=== PATIENT | female | born 1960 | race African-American/Black ===

== ENCOUNTER → 2017-04-08 | Outpatient (CLI) | payer MEDICARE ==
--- NOTE | 2017-04-08 16:15 | RADIOLOGY REPORT (SQ) ---
EXAM DESCRIPTION: VENOUS BILATERAL LOWER COMPLETED DATE/TIME: 04/08/2017 3:12 pm REASON FOR STUDY: EDEMA R22.41 LOCALIZED SWELLING, MASS AND LUMP, RIGHT LOWER LIMB COMPARISON: 07/26/2010 lower extremity venous Doppler TECHNIQUE: Dynamic and static adiar scale and color images acquired of both lower extremity venous sy stems. Selected spectral images acquired with additional compression and augmentation maneuvers. Imag es stored on PACS. LIMITATIONS: Morbid obesity. The distal right and left superficial femoral veins at the distal righ t and left thigh are difficult to visualize FINDINGS: RIGHT LEG COMMON FEMORAL AND FEMORAL: Normal phasicity, compression and augmentation. No visualized echogenic m aterial on adair scale. No defects on color images. POPLITEAL: Normal compression and augmentation. No visualized echogenic material on adair scale. No de fects on color images. CALF VESSELS: Normal compression and augmentation. No visualized echogenic material on adair scale. No defects on color image. GSV AND SSV: Normal compression. No visualized echogenic material on adair scale. No defects on color images. ANY DEEP VENOUS INSUFFICIENCY: Not evaluated. ANY EVIDENCE OF POPLITEAL CYST: No. OTHER: No other significant finding. LEFT LEG COMMON FEMORAL AND FEMORAL: Normal phasicity, compression and augmentation. No visualized echogenic m aterial on adair scale. No defects on color images. POPLITEAL: Normal compression and augmentation. No visualized echogenic material on adair scale. No de fects on color images. CALF VESSELS: Normal compression and augmentation. No visualized echogenic material on adair scale. No defects on color images. GSV AND SSV: Normal compression. No visualized echogenic material on adair scale. No defects on color images. ANY DEEP VENOUS INSUFFICIENCY: Not evaluated. ANY EVIDENCE POPLITEAL CYST: No. OTHER: No other significant finding. IMPRESSION: NO EVIDENCE DVT OR SVT IN EITHER LEG. TECHNICAL DOCUMENTATION: JOB ID: [id number] [employer]- All Rights Reserved
== END ==
LOC: SP 14:11
PROVIDERS: ATTEND Internal Medicine Geriatric Medicine
DX: R22.41 Localized swelling, mass and lump, right lower limb (principal)
CPT/HCPCS: 93970

== ENCOUNTER → 2017-10-13 | Outpatient (CLI) | payer MEDICARE ==
--- NOTE | 2017-10-13 16:21 | WOMENS IMAGING REPORT ---
EXAM DESCRIPTION: 3D SCREENING MAMMO BILAT COMPLETED DATE/TIME: 10/13/2017 2:13 pm REASON FOR STUDY: SCREENING MAMMO Z12.31 ENCNTR SCREEN MAMMOGRAM FOR MALIGNANT NEOPLASM OF FRANCIS COMPARISON: Multiple since 2009 TECHNIQUE: Standard craniocaudal and mediolateral oblique views of each breast recorded using digita l acquisition and breast tomosynthesis. LIMITATIONS: None. FINDINGS: No masses, calcifications or architectural distortion. No areas of suspicion. Read with the assistance of CAD. .[facility] - R2 Cenova Version 1.3 .[facility] Imaging - R2 Cenova Version 1.3 .[facility] Imaging - R2 Cenova Version 2.4 .[facility] - R2 Cenova Version 2.4 .[facility] - R2 [employer] Version 9.2 IMPRESSION: NORMAL MAMMOGRAM. BIRADS 1. BREAST DENSITY: a. The breasts are almost entirely fatty. BIRAD: 1 NEGATIVE RECOMMENDATION: ROUTINE SCREENING Please continue yearly bilateral screening tomosynthesis in October 2017 COMMENT: The patient has been notified of the results by letter per SA requirements. Additional no tification policies are in place for contacting patient with suspicious or incomplete findings. Quality ID #225: The [employer] recommends an annual screening mammogram for women aged 40 years or over. This facility utilizes a reminder system to ensure that all patients receive reminder letters, and/or direct phone calls for appointments. This includes reminders for routine scr eening mammograms, diagnostic mammograms, or other Breast Imaging Interventions when appropriate. Th is patient will be placed in the appropriate reminder system. The [employer] (ACR) has developed recommendations for screening MRI of the breast s in certain patient populations, to be used in conjunction with mammography. Breast MRI surveillanc e may be appropriate for women with more than 20% lifetime risk of developing breast cancer as deter mined by genetic testing, significant family history of the disease, or history of mantle radiation f or Hodgkins Disease. ACR Practice Guidelines 2008. DBT Technology DBT is a type of tomographic mammography. With conventional mammography, overlapping breast tissue ma y make lesions difficult to detect, even with good compression. DBT uses an x-ray tube that rotates a round the breast, taking images at different angles. These images are then combined to create thin sl ices of the breast that the radiologist can view as a 3D reconstruction. The EasyPost unit can perform full-field digital mammograms (2D imaging); or DBT (3D imaging); or both, in a combination mode that quickly performs both the mammogram and the tomosynthesis scan while the breast is still compressed. PQRS 6045F: Fluoroscopic imaging is not utilized for breast tomosynthesis. TECHNICAL DOCUMENTATION: FINDING NUMBER: (1) ASSESSMENT: (1) JOB ID: [id number] [employer]- All Rights Reserved Reading location - IP/workstation name: [email or web address]-RR2
== END ==
LOC: WI 13:14
PROVIDERS: ATTEND Internal Medicine Geriatric Medicine
DX: Z12.31 Encounter for screening mammogram for malignant neoplasm of breast (principal)
CPT/HCPCS: 77063; 77067

== ENCOUNTER → 2018-11-03 | Outpatient (CLI) | payer MEDICARE ==
--- NOTE | 2018-11-03 14:23 | WOMENS IMAGING REPORT ---
EXAM DESCRIPTION: 3D SCREENING MAMMO BILAT COMPLETED DATE/TIME: 11/03/2018 8:41 am REASON FOR STUDY: Z12.31 ENCOUNTER FOR SCREENING MAMMOGRAM FOR MALIGNANT NEOPLASM OF BREAST Z12.31 ENCNTR SCREEN MAMMOGRAM FOR MALIGNANT NEOPLASM OF FRANCIS COMPARISON: Multiple since 2009 EXAM PARAMETERS: Views: Standard craniocaudal and mediolateral oblique views of each breast recorded using digital acquisition and breast tomosynthesis. Read with the assistance of CAD. .[facility] - [employer] Monitor Version 9.2 LIMITATIONS: None. FINDINGS: No suspicious masses, suspicious calcifications or architectural distortion. No areas of c oncern. IMPRESSION: NEGATIVE MAMMOGRAM. BIRADS 1. BREAST DENSITY: a. The breasts are almost entirely fatty. BIRAD: ASSESSMENT: 1 NEGATIVE RECOMMENDATION: ROUTINE SCREENING COMMENT: The patient has been notified of the results by letter per MQSA requirements. Additional no tification policies are in place for contacting patient with suspicious or incomplete findings. Quality ID #[id number]: The [employer] recommends an annual screening mammogram for women aged 40 years or over. This facility utilizes a reminder system to ensure that all patients receive reminder letters, and/or direct phone calls for appointments. This includes reminders for routine scr eening mammograms, diagnostic mammograms, or other Breast Imaging Interventions when appropriate. Th is patient will be placed in the appropriate reminder system. TECHNICAL DOCUMENTATION: FINDING NUMBER: (1) ASSESSMENT: (1) JOB ID: [id number] [employer]- All Rights Reserved Reading location - IP/workstation name: [email or web address]
== END ==
LOC: WI 08:18
PROVIDERS: ATTEND Internal Medicine Geriatric Medicine
DX: Z12.31 Encounter for screening mammogram for malignant neoplasm of breast (principal)
CPT/HCPCS: 77063; 77067

== ENCOUNTER 2018-11-30 08:30 | Inpatient (IN) | payer MEDICARE ==
[2018-11-30] MEDS ORDERED: NORMAL SALINE 1000 ML 1,000 ML IV ONE (09:12)
--- NOTE | 2018-11-30 09:21 | ER Document Report ---
ED General - General Chief Complaint: General Weakness Stated Complaint: WEAKNESS Time Seen by Provider: 11/30/18 09:11 Primary Care Provider: ALEX CERRATO MD [Primary Care Provider] - Follow up as needed TRAVEL OUTSIDE OF THE [place] IN LAST 30 DAYS: No - HPI Notes: Patient is a 58-year-old female that presents to the emergency department for chief complaint of generalized weakness and cough. Patient states she has felt increasingly fatigued over the last 3 to 4 days. Sh ines reports yesterday she started feeling short of breath and coughing. She denies productive sputum. She states she feels like she has been running a temperature and her T-max at home was 99.7. Patient did take Tylenol last night for fever but has not had any antipyretics this morning. She reports some nausea with a few episodes of emesis a few days ago but that has resolved. She denied any associated abdominal pain, chest pain or diarrhea. Past Medical History: Reviewed in chart Past Surgical History: Total knee arthroplasty Social History: Denies tobacco, alcohol and drug use Family History: Reviewed and noncontributory for presenting illness Allergies: Reviewed, see documented allergy list. REVIEW OF SYSTEMS: CONSTITUTIONAL : fever chills diaphoresis No recent illness EENT: No vision changes congestion No sore throat CARDIOVASCULAR: No chest pain No palpitations RESPIRATORY: shortness of breath cough difficulty breathing GASTROINTESTINAL: No abdominal pain nausea vomiting No diarrhea GENITOURINARY: No dysuria No hematuria No difficulty urinating MUSCULOSKELETAL: No back pain No leg pain No arm pain SKIN: No rashes No lesions LYMPHATIC: No swollen, enlarged glands. NEUROLOGICAL: No lightheadedness No headache No weakness No paresthesias PSYCHIATRIC: No anxiety No depression PHYSICAL EXAMINATION: Vital signs reviewed, nursing noted reviewed. GENERAL: ill-appearing, obese and in mild acute distress. HEAD: Atraumatic, normocephalic. EYES: Eyes appear normal, extraocular movements intact, sclera anicteric, conjunctiva are normal. ENT: nares patent, oropharynx clear without exudates. Moist mucous membranes. NECK: Normal range of motion, supple without lymphadenopathy LUNGS: Tachypneic without retractions. Mild accessory muscle use. Lung sounds diminished to auscultation bilaterally without wheezing or rhonchi. HEART: Tachycardic rate and regular rhythm without murmurs ABDOMEN: Soft, nontender, normoactive bowel sounds. No rebound, guarding, or rigidity. No masses appreciated. EXTREMITIES: Nontender, good range of motion, no pitting or edema. NEUROLOGICAL: No focal neurological deficits. Moves all extremities spontaneously Motor and sensory grossly intact on exam. PSYCH: Normal mood, normal affect. SKIN: Warm, diaphoretic, normal turgor, no rashes or lesions noted on exposed s kin - Related Data Allergies/Adverse Reactions: morphine [Morphine] Allergy (Intermediate, Verified 11/30/18 08:39) hives, itching Past Medical History - Social History Smoking Status: Never Smoker Family History: Reviewed & Not Pertinent Patient has suicidal ideation: No Patient has homicidal ideation: No - Past Medical History Cardiac Medical History: Denies: Hx Coronary Artery Disease, Hx Heart Attack, Hx Hypertension Pulmonary Medical History: Denies: Hx Asthma, Hx Bronchitis, Hx COPD, Hx Pneumonia Neurological Medical History: Denies: Hx Cerebrovascular Accident, Hx Seizures Musculoskeletal Medical History: Reports Hx Arthritis Past Surgical History: Reports: Hx Section - x3, Hx Hysterectomy - Immunizations Hx Diphtheria, Pertussis, Tetanus Vaccination: Yes Physical Exam - Vital signs Vitals: Temp Pulse Resp BP Pulse Ox 99.3 F 119 H 20 125/83 94 11/30/18 08:38 11/30/18 08:38 11/30/18 08:38 11/30/18 08:38 11/30/18 08:38 Course - Re-evaluation Re-evalutation: 11/30/18 10:20 Vitals reviewed. Nursing notes reviewed. Patient is diaphoretic and hypoxic in the 60s when she presents in the room. Patient was placed on nonrebreather mask which brought her O2 level to 95%. She does have tachypnea without retractions. Patient's chest x-ray shows significant right-sided pneumonia and to a lesser extent lower left lobe pneumonia. Patient started on Rocephin and azithromycin. She is meeting septic shock criteria with elevated lactate, renal failure and elevated troponin. Patient's troponin is 0.686. She has not had any associated chest pain and has no ischemic changes on EKG. I suspect this is type II NSTEMI secondary to severe hypoxia. Patient's ABG shows hypoxia despite being on 10 L of nonrebreather oxygen, she will be placed on BiPAP for continued respiratory support. She is awake and currently protecting her airway, not requiring intubation currently. Patient will be admitted to the hospital for further care. Case discussed with admitting provider Dr. Cerrato Laboratory 11/30/18 11/30/18 11/30/18 09:11 09:11 09:11 WBC 15.8 H RBC 3.96 Hgb 11.7 L Hct 35.4 L MCV 89 MCH 29.6 MCHC 33.1 RDW 14.6 H Plt Count 216 Lymph % (Auto) 11.1 L York % (Auto) 5.5 Eos % (Auto) 0.0 Baso % (Auto) 0.1 Absolute Neuts (auto) 13.2 H Absolute Lymphs (auto) 1.8 Absolute Monos (auto) 0.9 Absolute Eos (auto) 0.0 Absolute Basos (auto) 0.0 Seg Neutrophils % 83.3 H Carbonic Acid HCO3/H2CO3 Ratio ABG pH ABG pCO2 ABG pO2 ABG HCO3 ABG Total CO2 ABG O2 Saturation ABG Base Excess FiO2 Sodium 139.5 Potassium 4.3 Chloride 103 Carbon Dioxide 27 Anion Gap 10 BUN 24 H Creatinine 1.43 H Est GFR ( Amer) 46 L Est GFR (MDRD) Non-Af 38 L Glucose 148 H Lactic Acid Calcium 8.5 Total Bilirubin 2.3 H Direct Bilirubin 1.2 H Neonat Total Bilirubin Not Reportable Neonat Direct Bilirubin Not Reportable Neonat Indirect Bili Not Reportable AST 583 H ALT 402 Alkaline Phosphatase 89 Troponin I 0.686 Total Protein 6.5 Albumin 3.3 L 11/30/18 11/30/18 09:11 09:31 WBC RBC Hgb Hct MCV MCH MCHC RDW Plt Count Lymph % (Auto) York % (Auto) Eos % (Auto) Baso % (Auto) Absolute Neuts (auto) Absolute Lymphs (auto) Absolute Monos (auto) Absolute Eos (auto) Absolute Basos (auto) Seg Neutrophils % Carbonic Acid 1.18 HCO3/H2CO3 Ratio 20:1 ABG pH 7.41 ABG pCO2 39.2 ABG pO2 79.4 L ABG HCO3 24.5 H ABG Total CO2 25.7 H ABG O2 Saturation 95.9 ABG Base Excess 0 FiO2 10L Sodium Potassium Chloride Carbon Dioxide Anion Gap BUN Creatinine Est GFR ( Amer) Est GFR (MDRD) Non-Af Glucose Lactic Acid 3.2 H Calcium Total Bilirubin Direct Bilirubin Neonat Total Bilirubin Neonat Direct Bilirubin Neonat Indirect Bili AST ALT Alkaline Phosphatase Troponin I Total Protein Albumin Chest X-Ray 11/30/18 09:11 IMPRESSION: EXTENSIVE AIRSPACE DISEASE IN THE RIGHT LUNG, LIKELY INFILTRATE SECONDARY TO PNEUMONIA. PROBABLE INFILTRATE IN THE LEFT LUNG BASE WELL. - Vital Signs Vital signs: Temp Pulse Resp BP Pulse Ox 99.3 F 119 H 27 H 125/81 97 11/30/18 08:38 11/30/18 08:38 11/30/18 10:03 11/30/18 10:03 11/30/18 10:03 - Laboratory Result Diagrams: 11/30/18 09:11 11/30/18 09:11 Laboratory results interpreted by me: 11/30/18 11/30/18 11/30/18 09:11 09:11 09:11 WBC 15.8 H Hgb 11.7 L Hct 35.4 L RDW 14.6 H Lymph % (Auto) 11.1 L Absolute Neuts (auto) 13.2 H Seg Neutrophils % 83.3 H ABG pO2 ABG HCO3 ABG Total CO2 BUN 24 H Creatinine 1.43 H Est GFR ( Amer) 46 L Est GFR (MDRD) Non-Af 38 L Glucose 148 H Lactic Acid 3.2 H Total Bilirubin 2.3 H Direct Bilirubin 1.2 H AST 583 H Albumin 3.3 L 11/30/18 09:31 WBC Hgb Hct RDW Lymph % (Auto) Absolute Neuts (auto) Seg Neutrophils % ABG pO2 79.4 L ABG HCO3 24.5 H ABG Total CO2 25.7 H BUN Creatinine Est GFR ( Amer) Est GFR (MDRD) Non-Af Glucose Lactic Acid Total Bilirubin Direct Bilirubin AST Albumin - EKG Interpretation by Me Additional EKG results interpreted by me: 11/30/18 10:23 Interpreted by myself [id number]: Sinus tachycardia, rate 116, normal axis, no ectopy, no STEMI Critical Care Note - Critical Care Note Total time excluding time spent on procedures (mins): 40 Comments: Critical care time 40 exclusive from separate billable procedures for a patient requiring complex medical decision making, and high potential for clinical deterioration. Time spent obtaining history from patient or surrogate, discussions with consultants, development of treatment plan with patient or surrogate, evaluation of patient's response to treatment, examination of patient, ordering and performing treatments and interventions, ordering and review of laboratory studies, re-evaluation of patient's condition, ordering and review of radiographic studies and review of old charts Discharge - Discharge Clinical Impression: Septic shock, Elevated troponin, Elevated lactic acid level Community acquired pneumonia Qualifiers: Laterality: right Lung location: upper lobe of lung Qualified Code(s): J18.1 - Lobar pneumonia, unspecified organism Respiratory failure with hypoxia Qualifiers: Chronicity: acute Qualified Code(s): J96.01 - Acute respiratory failure with hypoxia Acute renal failure Qualifiers: Acute renal failure type: unspecified Qualified Code(s): N17.9 - Acute kidney failure, unspecified Condition: Good Disposition: ADMITTED INPATIENT Admitting Provider: Felice Unit Admitted: [facility] Referrals: ALEX CERRATO MD [Primary Care Provider] - Follow up as needed
[2018-11-30] MEDS ORDERED: ACETAMINOPHEN 325 MG TABLET PO ONE (09:34)
[2018-11-30 09:40] LABS: ABSOLUTE LYMPHOCYTES (AUTO) 1.8 10^3/uL (0.5-4.7); ABSOLUTE MONOCYTES (AUTO) 0.9 10^3/uL (0.1-1.4); ABSOLUTE NEUT (AUTO) 13.2 10^3/uL (1.7-8.2); BASOPHILS % (AUTO) 0.1 % (0-2); HEMATOCRIT 35.4 % (36.0-47.0); HEMOGLOBIN 11.7 g/dL (12.0-15.5); LYMPHOCYTES % (AUTO) 11.1 % (13-45); MEAN CORPUSCULAR HEMOGLOBIN 29.6 pg (27.0-33.4); MEAN CORPUSCULAR HGB CONC 33.1 g/dL (32.0-36.0); MEAN CORPUSCULAR VOLUME 89 fl (80-97); MONOCYTES % (AUTO) 5.5 % (3-13); PLATELET COUNT 216 10^3/uL (150-450); RED BLOOD COUNT 3.96 10^6/uL (3.72-5.28); RED CELL DISTRIBUTION WIDTH 14.6 % (11.5-14.0); SEGMENTED NEUTROPHILS % (AUTO) 83.3 % (42-78); TOTAL CELLS COUNTED % (AUTO) 100 %; WHITE BLOOD COUNT 15.8 10^3/uL (4.0-10.5)
--- NOTE | 2018-11-30 09:45 | RADIOLOGY REPORT (SQ) ---
EXAM DESCRIPTION: CHEST SINGLE VIEW COMPLETED DATE/TIME: 11/30/2018 9:29 am REASON FOR STUDY: weakness COMPARISON: None. EXAM PARAMETERS: NUMBER OF VIEWS: One view. TECHNIQUE: Single frontal radiographic view of the chest acquired. RADIATION DOSE: NA LIMITATIONS: Limited due to the patient's body habitus. FINDINGS: LUNGS AND PLEURA: Extensive airspace disease in the right lung. Probable density in the l eft lung base behind the heart. No large pleural effusion or obvious pneumothorax. MEDIASTINUM AND HILAR STRUCTURES: No masses. Contour normal. HEART AND VASCULAR STRUCTURES: Heart normal in size. Normal vasculature. BONES: No acute findings. HARDWARE: None in the chest. OTHER: No other significant finding. IMPRESSION: EXTENSIVE AIRSPACE DISEASE IN THE RIGHT LUNG, LIKELY INFILTRATE SECONDARY TO PNEUMONIA. PROBABLE INFILTRATE IN THE LEFT LUNG BASE WELL. TECHNICAL DOCUMENTATION: JOB ID: [id number] [employer]- All Rights Reserved Reading location - IP/workstation name: [email or web address]
[2018-11-30 09:57] LABS: ARTERIAL BLOOD BASE EXCESS 0 mmol/L; ARTERIAL BLOOD H2CO3 1.18 mmol/L (1.05-1.35); ARTERIAL BLOOD HCO3 24.5 mmol/L (20-24); ARTERIAL BLOOD O2 SATURATION 95.9 % (94-98); ARTERIAL BLOOD PCO2 39.2 mmHg (35-45); ARTERIAL BLOOD PH 7.41 (7.35-7.45); ARTERIAL BLOOD PO2 79.4 mmHg (80-100); ARTERIAL BLOOD TOTAL CO2 25.7 mmol/L (21-25)
[2018-11-30 09:58] LABS: ARTERIAL BLOOD FIO2 10L
[2018-11-30 10:01] LABS: ALBUMIN 3.3 g/dL (3.5-5.0); ALKALINE PHOSPHATASE 89 U/L (38-126); ANION GAP 10 (5-19); ASPARTATE AMINO TRANSFERASE 583 U/L (14-36); BILIRUBIN,DIRECT 1.2 mg/dL (0.0-0.4); BILIRUBIN,TOTAL 2.3 mg/dL (0.2-1.3); BLOOD UREA NITROGEN 24 mg/dL (7-20); CALCIUM 8.5 mg/dL (8.4-10.2); CARBON DIOXIDE 27 mmol/L (22-30); CHLORIDE 103 mmol/L (98-107); GLUCOSE 148 mg/dL (75-110); POTASSIUM 4.3 mmol/L (3.6-5.0); TOTAL PROTEIN 6.5 g/dL (6.3-8.2)
[2018-11-30] MEDS ORDERED: CEFTRIAXONE INJ 1000 MG VIAL IV ONE (10:01)
[2018-11-30] MEDS ORDERED: AZITHROMYCIN INJ 500 MG VIAL IV ONE (10:01)
[2018-11-30] MEDS ORDERED: ASPIRIN 81 MG TABLET, CHEWABLE PO ONE (10:20)
[2018-11-30 10:39] LABS: A TYPE INFLUENZA AG NEGATIVE (NEGATIVE); B INFLUENZA AG NEGATIVE (NEGATIVE)
[2018-11-30] MEDS: NORMAL SALINE 1000 ML 1,000 ML IV PRN ×2 (13:47→22:21)
[2018-11-30] MEDS ORDERED: ONDANSETRON HCL INJ/PF 4 MG/2 ML SDV IV PRN (14:24)
[2018-11-30] MEDS ORDERED: NORMAL SALINE 1000 ML 1,000 ML IV PRN (14:24)
--- NOTE | 2018-11-30 19:18 | PDOC H&P ---
History of Present Illness Admission Date/PCP: 11/30/18 10:31 ALEX SAQIB Patient complains of: Difficulty with breathing History of Present Illness: LA LUNA is a 58 year old female known to my practice presented to the ED with several days of progressive generalized weakness, excessive sleepiness, and difficulty with breathing. She reported several episodes pf postprandial vomiting and admitted to possible aspiration. She reported associated n onproductive cough, wheezing, low grade fever and worsening shortness of breath that prompted her seeking medical evaluation at the ED. Her initial evaluation was significant for tachycardia, tachypnea and hypoxemia on room air. She denied ay chest pain, palpitation, or abdominal pain. She admitted to low grade fever and self administration of Tylenol night before her presentation to the ED. she denied any recent exposure to sick individual or travel outside her usual domain. Her morbidities are as listed below. Past Medical History Cardiac Medical History: Denies: Coronary Artery Disease, Myocardial Infarction, Hypertension Pulmonary Medical History: Denies: Asthma, Bronchitis, Chronic Obstructive Pulmonary Disease (COPD), Pneumonia Neurological Medical History: Denies: Seizures GI Medical History: Reports: Gastroesophageal Reflux Disease Musculoskeltal Medical History: Reports: Arthritis - involving knee joints and cheronic pain Hematology: Denies: Anemia Past Surgical History Past Surgical History: Reports: Section - x3, Hysterectomy, Orthopedic Surgery - Right knee replacement Social History Smoking Status: Never Smoker Electronic Cigarette use?: No Frequency of Alcohol Use: None Hx Recreational Drug Use: No Drugs: None Hx Prescription Drug Abuse: No - Advance Directive Resuscitation Status: Full Code Family History Family History: Reviewed & Not Pertinent Parental Family History Reviewed: Yes Children Family History Reviewed: Yes Sibling(s) Family History Reviewed.: Yes Medication/Allergy Home Medications: Aspirin [Ecotrin 81 mg EC Tablet] 81 mg PO DAILY 11/30/18 Cetirizine HCl [Zyrtec 10 mg Tablet] 10 mg PO DAILY 11/30/18 Cyclobenzaprine HCl [Flexeril 10 mg Tablet] 10 mg PO BID 11/30/18 Gabapentin [Neurontin] 600 mg PO BID 11/30/18 Meloxicam [Mobic] 15 mg PO DAILY 11/30/18 Omeprazole 40 mg PO DAILY 11/30/18 Ranitidine HCl [Zantac] 300 mg PO QHS 11/30/18 Allergies/Adverse Reactions: morphine [Morphine] Allergy (Intermediate, Verified 11/30/18 08:39) hives, itching Review of Systems Constitutional: PRESENT: anorexia, fatigue, fever(s), weakness Eyes: ABSENT: visual disturbances Ears: ABSENT: hearing changes Nose, Mouth, and Throat: ABSENT: as per HPI, headache(s), mouth pain, sore throat, vertigo, other Cardiovascular: PRESENT: dyspnea on exertion Respiratory: PRESENT: cough, dyspnea Gastrointestinal: PRESENT: vomiting Genitourinary: ABSENT: dysuria, hematuria Musculoskeletal: PRESENT: back pain - long standing issue, deformity - knee joint arthritis Integumentary: ABSENT: rash, wounds Neurological: ABSENT: abnormal gait, abnormal speech, confusion, dizziness, focal weakness, syncope Psychiatric: ABSENT: anxiety, depression, homidical ideation, suicidal ideation Endocrine: ABSENT: cold intolerance, heat intolerance, polydipsia, polyuria Hematologic/Lymphatic: ABSENT: easy bleeding, easy bruising, lymphadenopathy Allergic/Immunologic: ABSENT: seasonal rhinorrhea Physical Exam Vital Signs: Temp Pulse Resp BP Pulse Ox 97.5 F 100 34 H 126/87 H 96 11/30/18 16:00 11/30/18 16:00 11/30/18 16:00 11/30/18 16:00 11/30/18 16:00 Intake & Output 11/29/18 11/30/18 12/01/18 06:59 06:59 06:59 Intake Total 1300 Balance 1300 Weight 370.5 kg General appearance: PRESENT: mild distress - remain on BiPAP support, morbidly obese Head exam: PRESENT: atraumatic, normocephalic Eye exam: PRESENT: conjunctiva pink, EOMI, PERRLA. ABSENT: scleral icterus Ear exam: PRESENT: normal external ear exam Mouth exam: PRESENT: moist Throat exam: ABSENT: post pharyngeal erythema, tonsillar erythema, tonsillar exudate, tonsillogmegaly, other Neck exam: PRESENT: full ROM. ABSENT: carotid bruit, JVD, lymphadenopathy, thyromegaly Respiratory exam: PRESENT: crackles - scatterd bilaterally, decreased breath sounds - right lower lung zone Cardiovascular exam: PRESENT: RRR. ABSENT: diastolic murmur, rubs, systolic murmur Vascular exam: ABSENT: pallor GI/Abdominal exam: PRESENT: normal bowel sounds, soft. ABSENT: distended, guarding, mass, organolmegaly, rebound, tenderness Rectal exam: PRESENT: deferred Extremities exam: ABSENT: pedal edema Musculoskeletal exam: PRESENT: deformity - related to mu;tiple jpoints involvement with arthritis Neurological exam: PRESENT: alert, awake, oriented to person, oriented to place, oriented to time, oriented to situation, CN II-XII grossly intact. ABSENT: motor sensory deficit Psychiatric exam: PRESENT: appropriate affect, normal mood. ABSENT: homicidal ideation, suicidal ideation Skin exam: PRESENT: dry, warm Results Laboratory Results: 11/30/18 09:11 11/30/18 09:11 11/30/18 11/30/18 11/30/18 09:11 09:11 09:11 WBC 15.8 H RBC 3.96 Hgb 11.7 L Hct 35.4 L MCV 89 MCH 29.6 MCHC 33.1 RDW 14.6 H Plt Count 216 Seg Neutrophils % 83.3 H Carbonic Acid HCO3/H2CO3 Ratio ABG pH ABG pCO2 ABG pO2 ABG HCO3 ABG O2 Saturation ABG Base Excess FiO2 Sodium 139.5 Potassium 4.3 Chloride 103 Carbon Dioxide 27 Anion Gap 10 BUN 24 H Creatinine 1.43 H Est GFR ( Amer) 46 L Glucose 148 H Lactic Acid 3.2 H Calcium 8.5 Total Bilirubin 2.3 H AST 583 H Alkaline Phosphatase 89 Total Protein 6.5 Albumin 3.3 L 11/30/18 09:31 WBC RBC Hgb Hct MCV MCH MCHC RDW Plt Count Seg Neutrophils % Carbonic Acid 1.18 HCO3/H2CO3 Ratio 20:1 ABG pH 7.41 ABG pCO2 39.2 ABG pO2 79.4 L ABG HCO3 24.5 H ABG O2 Saturation 95.9 ABG Base Excess 0 FiO2 10L Sodium Potassium Chloride Carbon Dioxide Anion Gap BUN Creatinine Est GFR ( Amer) Glucose Lactic Acid Calcium Total Bilirubin AST Alkaline Phosphatase Total Protein Albumin 11/30/18 09:11 Troponin I 0.686 Impressions: Chest X-Ray 11/30/18 09:11 IMPRESSION: EXTENSIVE AIRSPACE DISEASE IN THE RIGHT LUNG, LIKELY INFILTRATE SECONDARY TO PNEUMONIA. PROBABLE INFILTRATE IN THE LEFT LUNG BASE WELL. Assessment & Plan - Diagnosis (1) Respiratory failure with hypoxia Qualifiers: Chronicity: acute Qualified Code(s): J96.01 - Acute respiratory failure with hypoxia Is this a current diagnosis for this admission?: Yes Plan: See admitting attending physician orders for details about care plan. (2) Community acquired pneumonia Qualifiers: Laterality: right Lung location: upper lobe of lung Qualified Code(s): J18.1 - Lobar pneumonia, unspecified organism Is this a current diagnosis for this admission?: Yes Plan: ee admitting attending physician orders for details about care plan. (3) Elevated troponin Is this a current diagnosis for this admission?: Yes Plan: ee admitting attending physician orders for details about care plan. (4) Elevated lactic acid level Is this a current diagnosis for this admission?: Yes Plan: ee admitting attending physician orders for details about care plan. (5) Acute renal failure Qualifiers: Acute renal failure type: unspecified Qualified Code(s): N17.9 - Acute kidney failure, unspecified Is this a current diagnosis for this admission?: Yes Plan: ee admitting attending physician orders for details about care plan. (6) Osteoarthritis of knee Qualifiers: Osteoarthritis type: primary Laterality: unspecified laterality Qualified Code(s): M17.10 - Unilateral primary osteoarthritis, unspecified knee Is this a current diagnosis for this admission?: Yes Plan: ee admitting attending physician orders for details about care plan. (7) Morbid obesity with BMI of 70 and over, adult Is this a current diagnosis for this admission?: Yes Plan: ee admitting attending physician orders for details about care plan. - Time Time Spent: 50 to 70 Minutes Medications reviewed and adjusted accordingly: Yes Anticipated discharge: Home Within: Other - Inpatient Certification Based on my medical assessment, after consideration of the patient's comorbidities, presenting symptoms, or acuity I expect that the services needed warrant INPATIENT care.: Yes I certify that my determination is in accordance with my understanding of Medicare's requirements for reasonable and necessary INPATIENT services [42 CFR 412.3e].: Yes Medical Necessity: Significant Comorbidiites Make Outpatient Treatment Too [place]is [place], Need Close Monitoring Due to Risk of Patient Decompensation, Need For IV Fluids, Need For Continuous Telemetry Monitoring, Need for Pain Control, Need for IV Antibiotics, Risk of Complication if Not Cared For in Hospital, Risk of Diagnosis Which Will Require Inpatient Eval/Care/Monitoring Post Hospital Care: D/C Care Transitions Nurse Documentation - Plan Summary Plan Summary: admitting attending physician orders for details about care plan.
[2018-11-30 20:42] LABS: CREATINE KINASE MB 1.6 ng/mL (<4.55)
[2018-11-30 20:44] LABS: APPEARANCE,URINE CLOUDY; BILIRUBIN,URINE NEGATIVE (NEGATIVE); COLOR,URINE AMBER; GLUCOSE, URINE NEGATIVE (NEGATIVE); KETONES,URINE TRACE mg/dL (NEGATIVE); LEUKOCYTE ESTERASE,URINE TRACE (NEGATIVE); NITRITE,URINE NEGATIVE (NEGATIVE); PROTEIN,URINE 100 mg/dL (NEGATIVE); URINE SPECIFIC GRAVITY 1.028
[2018-11-30 20:53] LABS: TROPONIN I 0.226 ng/mL
[2018-11-30] MEDS ORDERED: (PENDING PHARMACY ID) (Ranitidine Hcl [Zantac] 300 MG) PO SCH (22:00)
[2018-11-30] MEDS: GABAPENTIN 300 MG CAPSULE PO SCH (22:16)
[2018-11-30] MEDS: FAMOTIDINE 20 MG TABLET PO SCH (22:16)
--- NOTE | 2018-11-30 22:57 | EKG REPORT ---
SEVERITY:- BORDERLINE ECG - SINUS TACHYCARDIA PROBABLE LEFT ATRIAL ABNORMALITY BORDERLINE T WAVE ABNORMALITIES : Confirmed by: Silvestre Cardenas 30-Nov-2018 22:56:24
[2018-12-01 02:07] LABS: CREATINE KINASE MB 0.89 ng/mL (<4.55); TROPONIN I 0.155 ng/mL
[2018-12-01] MEDS: PANTOPRAZOLE SODIUM 40 MG TABLET.DR PO SCH (05:14)
[2018-12-01 08:12] LABS: ABSOLUTE LYMPHOCYTES (AUTO) 1.2 10^3/uL (0.5-4.7); ABSOLUTE MONOCYTES (AUTO) 0.7 10^3/uL (0.1-1.4); ABSOLUTE NEUT (AUTO) 10.1 10^3/uL (1.7-8.2); BASOPHILS % (AUTO) 0.1 % (0-2); EOSINOPHILS % (AUTO) 0.4 % (0-6); HEMATOCRIT 31.1 % (36.0-47.0); HEMOGLOBIN 10.4 g/dL (12.0-15.5); LYMPHOCYTES % (AUTO) 9.8 % (13-45); MEAN CORPUSCULAR HGB CONC 33.3 g/dL (32.0-36.0); MEAN CORPUSCULAR VOLUME 90 fl (80-97); MONOCYTES % (AUTO) 5.5 % (3-13); PLATELET COUNT 193 10^3/uL (150-450); RED BLOOD COUNT 3.46 10^6/uL (3.72-5.28); RED CELL DISTRIBUTION WIDTH 14.1 % (11.5-14.0); SEGMENTED NEUTROPHILS % (AUTO) 84.2 % (42-78); TOTAL CELLS COUNTED % (AUTO) 100 %
[2018-12-01 08:37] LABS: ANION GAP 8 (5-19); BLOOD UREA NITROGEN 18 mg/dL (7-20); CARBON DIOXIDE 27 mmol/L (22-30); CHLORIDE 105 mmol/L (98-107); CREATINE KINASE 171 U/L (30-135); GLUCOSE 88 mg/dL (75-110); POTASSIUM 3.9 mmol/L (3.6-5.0)
[2018-12-01 08:45] LABS: CREATINE KINASE MB 0.58 ng/mL (<4.55); TROPONIN I 0.116 ng/mL
[2018-12-01 09:14] LABS: ARTERIAL BLOOD BASE EXCESS 3.2 mmol/L; ARTERIAL BLOOD H2CO3 1.36 mmol/L (1.05-1.35); ARTERIAL BLOOD HCO3 28.3 mmol/L (20-24); ARTERIAL BLOOD O2 SATURATION 88.5 % (94-98); ARTERIAL BLOOD PCO2 45.3 mmHg (35-45); ARTERIAL BLOOD PH 7.41 (7.35-7.45); ARTERIAL BLOOD PO2 54.4 mmHg (80-100); ARTERIAL BLOOD TOTAL CO2 29.7 mmol/L (21-25)
[2018-12-01 09:16] LABS: ARTERIAL BLOOD FIO2 15L
[2018-12-01] MEDS: CEFTRIAXONE 1 GM/D5W RTU 1 GM/50 ML RTUPB IV SCH (10:21)
[2018-12-01] MEDS: ASPIRIN 81 MG TABLET, ENT COATED PO SCH (10:21)
[2018-12-01] MEDS: ACETAMINOPHEN 325 MG TABLET PO PRN (10:21)
[2018-12-01] MEDS: GABAPENTIN 300 MG CAPSULE PO SCH ×2 (10:21→22:02)
[2018-12-01] MEDS: CETIRIZINE 10 MG TABLET PO SCH (10:21)
[2018-12-01] MEDS: ENOXAPARIN SODIUM INJ 40 MG/0.4 ML DISP.SYRIN SUBCUT SCH (10:22)
--- NOTE | 2018-12-01 11:07 | RADIOLOGY REPORT (SQ) ---
EXAM DESCRIPTION: CHEST SINGLE VIEW COMPLETED DATE/TIME: 12/01/2018 10:25 am REASON FOR STUDY: follow up COMPARISON: 11/30/2018 EXAM PARAMETERS: NUMBER OF VIEWS: One view. TECHNIQUE: Single frontal radiographic view of the chest acquired. RADIATION DOSE: NA LIMITATIONS: None. FINDINGS: LUNGS AND PLEURA: Once again there is dense opacification in the right lung. There is nancy arently some loss of volume on the right. There is faintly defined retrocardiac opacification on the left. The left hemidiaphragm remains well-defined. MEDIASTINUM AND HILAR STRUCTURES: No masses. Contour normal. HEART AND VASCULAR STRUCTURES: Heart size is borderline. There is no [place] pulmonary edema. BONES: No acute findings. HARDWARE: None in the chest. OTHER: No other significant finding. IMPRESSION: There is slightly increased opacification the right lung suggestive of extensive pneumon ia. Cannot exclude a limited pneumonia in the left lower lobe. There is cardiomegaly with no [place] pulmonary edema. TECHNICAL DOCUMENTATION: JOB ID: [id number] [employer]- All Rights Reserved Reading location - IP/workstation name: [email or web address]
[2018-12-01] MEDS: AZITHROMYCIN 500 MG in DEXTROSE 5%-WATER 250 ML IV SCH (12:04)
--- NOTE | 2018-12-01 13:28 | CRITICAL CARE ADMISSION REPORT ---
HPI Date:: 12/01/18 Time:: 11:00 Reason for ICU Reason:: Potential for respiratory decompensation requiring intubation is high HPI: This patient is a 58 yo woman who was admitted last night after struggling at home with respiratory difficulty. This began Wednesday after vomiting. No actual aspiration that she can recall. Some GERD and nausea since that time. Her SOB and work of breathing became severe to the point where she needed to come to the ED and was p,laced on bipap. This AM her CXR looks similar with a severe infiltrate of the RML and RLL. Her RR is about 40, higher than last night. Her FIO2 is 40%. She can speak in full sentences but according to staff certified nurse midwife and her sister she is worse although she herself is probably minimizing this. This could be a CAP but given the temporal relationship to vomiting, the location and appearance of the infiltrate is consistent with aspiration. After 3 days she should be improving. Her respiratory system is at risk for intubation. She is not showing an ARDS pattern to CXR but this is certainly possible. We will continue bipap and antibiotics in the ICU and continue to prvide supportive care. History obtained from:: Patient and sister with nursing - Diagnosis/Plan (1) Aspiration pneumonia due to inhalation of vomitus Is this a current diagnosis for this admission?: Yes Plan: This is consistent with aspiration pneumonitis. It mandates supportive care. Antibiotics are not indicated but, as is frequently the case, there is some doubt of aspiration v CAP therefore antibiotics will be continued as will bipap. (2) Hypoxia Is this a current diagnosis for this admission?: Yes Plan: This is a major reason for ICU monitoring. She may fatigue with an RR of 40 and need intubation is not improved soon. No role for steroids. Past Medical History Cardiac Medical History: Denies: Coronary Artery Disease, Myocardial Infarction, Hypertension Pulmonary Medical History: Denies: Asthma, Bronchitis, Chronic Obstructive Pulmonary Disease (COPD), Pneumonia Neurological Medical History: Denies: Seizures GI Medical History: Reports: Gastroesophageal Reflux Disease Musculoskeltal Medical History: Reports: Arthritis - involving knee joints and cheronic pain Hematology: Denies: Anemia Past Surgical History Past Surgical History: Reports: Section - x3, Hysterectomy, Orthopedic Surgery - Right knee replacement, Other - Lab band surgery Social/Family History - Social History Smoking Status: Never Smoker Frequency of Alcohol Use: None Hx Recreational Drug Use: No Drugs: None Hx Prescription Drug Abuse: No - Medication/Allergies Home Medications: Aspirin [Ecotrin 81 mg EC Tablet] 81 mg PO DAILY 11/30/18 Cetirizine HCl [Zyrtec 10 mg Tablet] 10 mg PO DAILY 11/30/18 Cyclobenzaprine HCl [Flexeril 10 mg Tablet] 10 mg PO BID 11/30/18 Gabapentin [Neurontin] 600 mg PO BID 11/30/18 Meloxicam [Mobic] 15 mg PO DAILY 11/30/18 Omeprazole 40 mg PO DAILY 11/30/18 Ranitidine HCl [Zantac] 300 mg PO QHS 11/30/18 Allergies/Adverse Reactions: morphine [Morphine] Allergy (Intermediate, Verified 11/30/18 08:39) hives, itching Review of Systems ROS unobtainable: Other - Patient does tend to minimize Constitutional: ABSENT: chills, fever(s), headache(s), weight gain, weight loss Eyes: ABSENT: visual disturbances Ears: ABSENT: hearing changes Cardiovascular: ABSENT: chest pain, dyspnea on exertion, edema, orthropnea, palpitations Respiratory: PRESENT: as per HPI, dyspnea Gastrointestinal: ABSENT: abdominal pain, constipation, diarrhea, hematemesis, hematochezia, nausea, vomiting Genitourinary: ABSENT: dysuria, hematuria Integumentary: ABSENT: rash, wounds Neurological: ABSENT: abnormal gait, abnormal speech, confusion, dizziness, focal weakness, syncope Psychiatric: ABSENT: anxiety, depression, homidical ideation, suicidal ideation Endocrine: ABSENT: cold intolerance, heat intolerance, polydipsia, polyuria Hematologic/Lymphatic: ABSENT: easy bleeding, easy bruising Physical Exam Vital Signs: Temp Pulse Resp BP Pulse Ox 101.2 F H 103 H 30 H 132/61 H 100 12/01/18 11:50 12/01/18 11:50 12/01/18 11:50 12/01/18 11:50 12/01/18 11:50 Intake & Output 11/30/18 12/01/18 12/02/18 06:59 06:59 06:59 Intake Total 3300 50 Output Total 475 Balance 2825 50 Weight 172 kg 171 kg Weight/Height Weight 171 kg Height 5 ft 1 in General appearance: PRESENT: mild distress Head exam: PRESENT: atraumatic Eye exam: PRESENT: EOMI, PERRLA Ear exam: PRESENT: normal external ear exam Mouth exam: PRESENT: moist, tongue midline Neck exam: ABSENT: carotid bruit, JVD, lymphadenopathy, thyromegaly Respiratory exam: PRESENT: accessory muscle use, decreased breath sounds, tachypnea Cardiovascular exam: PRESENT: tachycardia GI/Abdominal exam: PRESENT: soft Rectal exam: PRESENT: deferred Gentrourinary exam: PRESENT: indwelling catheter Extremities exam: PRESENT: full ROM Musculoskeletal exam: PRESENT: normal inspection Neurological exam: PRESENT: alert, oriented to person, oriented to place, oriented to time, oriented to situation Laboratory/Radiographs Laboratory Results: 12/01/18 07:49 12/01/18 07:49 11/30/18 12/01/18 12/01/18 20:00 07:49 07:49 WBC 12.0 H RBC 3.46 L Hgb 10.4 L Hct 31.1 L MCV 90 MCH 30.0 MCHC 33.3 RDW 14.1 H Plt Count 193 Seg Neutrophils % 84.2 H Carbonic Acid HCO3/H2CO3 Ratio ABG pH ABG pCO2 ABG pO2 ABG HCO3 ABG O2 Saturation ABG Base Excess FiO2 Sodium 140.1 Potassium 3.9 Chloride 105 Carbon Dioxide 27 Anion Gap 8 BUN 18 Creatinine 0.71 Est GFR ( Amer) > 60 Glucose 88 Calcium 8.0 L Urine Color NESS Urine Appearance CLOUDY Urine pH 5.0 Ur Specific [place] 1.028 Urine Protein 100 H Urine Glucose (UA) NEGATIVE Urine Ketones TRACE H Urine Blood SMALL H Urine Nitrite NEGATIVE Ur Leukocyte Esterase TRACE H Urine WBC (Auto) 33 12/01/18 09:05 WBC RBC Hgb Hct MCV MCH MCHC RDW Plt Count Seg Neutrophils % Carbonic Acid 1.36 H HCO3/H2CO3 Ratio 20:1 ABG pH 7.41 ABG pCO2 45.3 H ABG pO2 54.4 L ABG HCO3 28.3 H ABG O2 Saturation 88.5 L ABG Base Excess 3.2 FiO2 15L Sodium Potassium Chloride Carbon Dioxide Anion Gap BUN Creatinine Est GFR ( Amer) Glucose Calcium Urine Color Urine Appearance Urine pH Ur Specific [place] Urine Protein Urine Glucose (UA) Urine Ketones Urine Blood Urine Nitrite Ur Leukocyte Esterase Urine WBC (Auto) 11/30/18 11/30/18 11/30/18 09:11 19:31 19:31 Creatine Kinase 290 H CK-MB (CK-2) 1.60 Troponin I 0.686 0.226 12/01/18 12/01/18 12/01/18 01:31 01:31 07:49 Creatine Kinase 258 H 171 H CK-MB (CK-2) 0.89 Troponin I 0.155 12/01/18 07:49 Creatine Kinase CK-MB (CK-2) 0.58 Troponin I 0.116 Impressions: Chest X-Ray 12/01/18 00:00 IMPRESSION: There is slightly increased opacification the right lung suggestive of extensive pneumonia. Cannot exclude a limited pneumonia in the left lower lobe. There is cardiomegaly with no [place] pulmonary edema. Critical Time Critical Time (minutes): 40 -: The care of a critically ill patient is dynamic. This note represents a static moment in the admission process. orders and treatments may be given simul ataneously and urgentl, and time is not tax representative of the treatment process. This patient requires Critical Care secondary to life threating organ or limb dysfunction. Without the need for Critical Care services, the patient is at risk for increasid mortality and morbidity.
--- NOTE | 2018-12-01 16:17 | PDOC PROGRESS REPORT ---
Subjective Progress Note for:: 12/01/18 Subjective:: Patient remain on BiPAP support due to continued report of difficulty with breathing. No chest pain. No fever or chills. No abdominal pain, nausea or vomiting. Reason For Visit: BILATERIAL LOBAR PNEUMONIA, ACUTE RESPIRATORY FAIL Physical Exam Vital Signs: Temp Pulse Resp BP Pulse Ox 98 F 107 H 36 H 108/55 L 96 12/01/18 04:00 12/01/18 07:00 12/01/18 04:14 12/01/18 04:00 12/01/18 04:14 Intake & Output 11/30/18 12/01/18 12/02/18 06:59 06:59 06:59 Intake Total 3300 Output Total 475 Balance 2825 Weight 172 kg General appearance: PRESENT: mild distress - on BiPAP support., morbidly obese Head exam: PRESENT: atraumatic, normocephalic Eye exam: PRESENT: conjunctiva pink. ABSENT: scleral icterus Ear exam: PRESENT: normal external ear exam Mouth exam: PRESENT: moist Respiratory exam: PRESENT: crackles, decreased breath sounds Cardiovascular exam: PRESENT: RRR. ABSENT: diastolic murmur, rubs, systolic murmur GI/Abdominal exam: PRESENT: normal bowel sounds, soft. ABSENT: distended, guarding, mass, organolmegaly, rebound, tenderness Extremities exam: ABSENT: pedal edema Neurological exam: PRESENT: alert, awake, oriented to person, oriented to place, oriented to time, oriented to situation, CN II-XII grossly intact. ABSENT: motor sensory deficit Psychiatric exam: PRESENT: appropriate affect, normal mood. ABSENT: homicidal ideation, suicidal ideation Skin exam: PRESENT: dry, warm Results Laboratory Results: 12/01/18 07:49 11/30/18 11/30/18 11/30/18 09:11 09:11 09:11 WBC 15.8 H RBC 3.96 Hgb 11.7 L Hct 35.4 L MCV 89 MCH 29.6 MCHC 33.1 RDW 14.6 H Plt Count 216 Seg Neutrophils % 83.3 H Carbonic Acid HCO3/H2CO3 Ratio ABG pH ABG pCO2 ABG pO2 ABG HCO3 ABG O2 Saturation ABG Base Excess FiO2 Sodium 139.5 Potassium 4.3 Chloride 103 Carbon Dioxide 27 Anion Gap 10 BUN 24 H Creatinine 1.43 H Est GFR ( Amer) 46 L Glucose 148 H Lactic Acid 3.2 H Calcium 8.5 Total Bilirubin 2.3 H AST 583 H Alkaline Phosphatase 89 Total Protein 6.5 Albumin 3.3 L Urine Color Urine Appearance Urine pH Ur Specific [place] Urine Protein Urine Glucose (UA) Urine Ketones Urine Blood Urine Nitrite Ur Leukocyte Esterase Urine WBC (Auto) 11/30/18 11/30/18 12/01/18 09:31 20:00 07:49 WBC 12.0 H RBC 3.46 L Hgb 10.4 L Hct 31.1 L MCV 90 MCH 30.0 MCHC 33.3 RDW 14.1 H Plt Count 193 Seg Neutrophils % 84.2 H Carbonic Acid 1.18 HCO3/H2CO3 Ratio 20:1 ABG pH 7.41 ABG pCO2 39.2 ABG pO2 79.4 L ABG HCO3 24.5 H ABG O2 Saturation 95.9 ABG Base Excess 0 FiO2 10L Sodium Potassium Chloride Carbon Dioxide Anion Gap BUN Creatinine Est GFR ( Amer) Glucose Lactic Acid Calcium Total Bilirubin AST Alkaline Phosphatase Total Protein Albumin Urine Color NESS Urine Appearance CLOUDY Urine pH 5.0 Ur Specific [place] 1.028 Urine Protein 100 H Urine Glucose (UA) NEGATIVE Urine Ketones TRACE H Urine Blood SMALL H Urine Nitrite NEGATIVE Ur Leukocyte Esterase TRACE H Urine WBC (Auto) 33 11/30/18 11/30/18 11/30/18 09:11 19:31 19:31 Creatine Kinase 290 H CK-MB (CK-2) 1.60 Troponin I 0.686 0.226 12/01/18 12/01/18 01:31 01:31 Creatine Kinase 258 H CK-MB (CK-2) 0.89 Troponin I 0.155 Impressions: Chest X-Ray 11/30/18 09:11 IMPRESSION: EXTENSIVE AIRSPACE DISEASE IN THE RIGHT LUNG, LIKELY INFILTRATE SECONDARY TO PNEUMONIA. PROBABLE INFILTRATE IN THE LEFT LUNG BASE WELL. Assessment & Plan - Diagnosis (1) Respiratory failure with hypoxia Qualifiers: Chronicity: acute Qualified Code(s): J96.01 - Acute respiratory failure with hypoxia Is this a current diagnosis for this admission?: Yes Plan: Continue BiPAP support with supplemental oxygen. (2) Community acquired pneumonia Qualifiers: Laterality: right Lung location: upper lobe of lung Qualified Code(s): J18.1 - Lobar pneumonia, unspecified organism Is this a current diagnosis for this admission?: Yes Plan: Maintain on IV Rocephin and Zithromax coverage. Follow up on blood culture findings. (3) Elevated troponin Is this a current diagnosis for this admission?: Yes Plan: Probably due to demand-supply mismatch in view of her acute illness and hypoxemia. (4) Elevated lactic acid level Is this a current diagnosis for this admission?: Yes (5) Acute renal failure Qualifiers: Acute renal failure type: unspecified Qualified Code(s): N17.9 - Acute kidney failure, unspecified Is this a current diagnosis for this admission?: Yes (6) Osteoarthritis of knee Qualifiers: Osteoarthritis type: primary Laterality: unspecified laterality Qualified Code(s): M17.10 - Unilateral primary osteoarthritis, unspecified knee Is this a current diagnosis for this admission?: Yes (7) Morbid obesity with BMI of 70 and over, adult Is this a current diagnosis for this admission?: Yes - Time Time Spent with patient: 25-34 minutes Medications reviewed and adjusted accordingly: Yes Anticipated discharge: Home Within: Other - Inpatient Certification Based on my medical assessment, after consideration of the patient's comorbidities, presenting symptoms, or acuity I expect that the services needed warrant INPATIENT care.: Yes I certify that my determination is in accordance with my understanding of Medicare's requirements for reasonable and necessary INPATIENT services [42 CFR 412.3e].: Yes Medical Necessity: Significant Comorbidiites Make Outpatient Treatment Too Risky, Need Close Monitoring Due to Risk of Patient Decompensation, Need For IV Fluids, Need For Continuous Telemetry Monitoring, Need for IV Antibiotics, Risk of Complication if Not Cared For in Hospital, Risk of Diagnosis Which Will Require Inpatient Eval/Care/Monitoring Post Hospital Care: D/C Commercial Relationship Manager Documentation - Plan Summary Plan Summary: Continue IV Zithromax and Rocephin coverage. Obtain CBC with diff, CMP,and chest X ray in AM. Maintain on all other current medication management. Overall prognosis remain guarded due to her persistent tachycardia, tachypnea, high risk of aspiration and possible ARDS. Continue to monitor closely for possible transfer to ICU if there is no improvement in her clinical status.
[2018-12-01] MEDS: FAMOTIDINE 20 MG TABLET PO SCH (22:03)
[2018-12-02] MEDS: PANTOPRAZOLE SODIUM 40 MG TABLET.DR PO SCH (06:57)
[2018-12-02] MEDS: CEFTRIAXONE 1 GM/D5W RTU 1 GM/50 ML RTUPB IV SCH (10:17)
[2018-12-02] MEDS: ENOXAPARIN SODIUM INJ 40 MG/0.4 ML DISP.SYRIN SUBCUT SCH (10:17)
[2018-12-02] MEDS: GABAPENTIN 300 MG CAPSULE PO SCH ×2 (10:18→22:18)
[2018-12-02] MEDS: ASPIRIN 81 MG TABLET, ENT COATED PO SCH (10:18)
[2018-12-02] MEDS: CETIRIZINE 10 MG TABLET PO SCH (10:18)
[2018-12-02] MEDS: AZITHROMYCIN 500 MG in DEXTROSE 5%-WATER 250 ML IV SCH (10:50)
--- NOTE | 2018-12-02 14:21 | PDOC PROGRESS REPORT ---
Subjective Progress Note for:: 12/02/18 Subjective:: Breathing easier. Off bipap all day. Reason For Visit: BILATERIAL LOBAR PNEUMONIA, ACUTE RESPIRATORY FAIL Physical Exam Vital Signs: Temp Pulse Resp BP Pulse Ox 98.7 F 117 H 44 H 136/56 H 100 12/02/18 12:00 12/02/18 12:00 12/02/18 12:00 12/02/18 12:00 12/02/18 12:00 Intake & Output 12/01/18 12/02/18 12/03/18 06:59 06:59 06:59 Intake Total 3300 1100 350 Output Total 475 1425 395 Balance 2825 -325 -45 Weight 172 kg 171 kg General appearance: PRESENT: no acute distress, morbidly obese Head exam: PRESENT: atraumatic Eye exam: PRESENT: conjunctiva pink, EOMI, PERRLA. ABSENT: scleral icterus Ear exam: PRESENT: normal external ear exam Mouth exam: PRESENT: moist, tongue midline Neck exam: PRESENT: full ROM. ABSENT: carotid bruit, JVD, lymphadenopathy, thyromegaly Respiratory exam: PRESENT: crackles, decreased breath sounds, unlabored Cardiovascular exam: PRESENT: RRR. ABSENT: diastolic murmur, rubs, systolic murmur GI/Abdominal exam: PRESENT: soft Rectal exam: PRESENT: deferred Extremities exam: PRESENT: full ROM Musculoskeletal exam: PRESENT: normal inspection Neurological exam: PRESENT: alert, awake, oriented to person, oriented to place, oriented to time, oriented to situation Psychiatric exam: PRESENT: appropriate affect, normal mood. ABSENT: homicidal ideation, suicidal ideation Results Laboratory Results: 12/01/18 07:49 12/01/18 07:49 11/30/18 11/30/18 11/30/18 09:11 19:31 19:31 Creatine Kinase 290 H CK-MB (CK-2) 1.60 Troponin I 0.686 0.226 12/01/18 12/01/18 12/01/18 01:31 01:31 07:49 Creatine Kinase 258 H 171 H CK-MB (CK-2) 0.89 Troponin I 0.155 12/01/18 07:49 Creatine Kinase CK-MB (CK-2) 0.58 Troponin I 0.116 Impressions: Chest X-Ray 12/01/18 00:00 IMPRESSION: There is slightly increased opacification the right lung suggestive of extensive pneumonia. Cannot exclude a limited pneumonia in the left lower lobe. There is cardiomegaly with no katya pulmonary edema. Assessment & Plan - Diagnosis (1) Aspiration pneumonia due to inhalation of vomitus Is this a current diagnosis for this admission?: Yes Plan: Resolving. Off bipap all day. Briefly came off oxygen all together and held sats at 90-91% Eating, out of bed berman out. Stable for floor. (2) Hypoxia Is this a current diagnosis for this admission?: Yes Plan: Resolved. Use oxygen PRN - Time Time Spent with patient: 25-34 minutes Medications reviewed and adjusted accordingly: Yes Anticipated discharge: Home Within: within 72 hours - Inpatient Certification Based on my medical assessment, after consideration of the patient's jesus rbidities, presenting symptoms, or acuity I expect that the services needed warrant INPATIENT care.: Yes I certify that my determination is in accordance with my understanding of Medicare's requirements for reasonable and necessary INPATIENT services [42 CFR 412.3e].: Yes Medical Necessity: Failure to Improve With Outpatient Therapy, Significant Comorbidiites Make Outpatient Treatment Too Risky, Need for Nebulizer Therapy and Monitoring of Response, Risk of Complication if Not Cared For in Hospital
[2018-12-02] MEDS ORDERED: GUAIFENESIN SYRP 200 MG/10 ML UDC ONE (22:08)
[2018-12-02] MEDS: FAMOTIDINE 20 MG TABLET PO SCH (22:18)
[2018-12-03] MEDS: AZITHROMYCIN 500 MG in DEXTROSE 5%-WATER 250 ML IV SCH (11:00)
[2018-12-03] MEDS: ENOXAPARIN SODIUM INJ 40 MG/0.4 ML DISP.SYRIN SUBCUT SCH (11:00)
[2018-12-03] MEDS: GABAPENTIN 300 MG CAPSULE PO SCH ×2 (11:00→21:34)
[2018-12-03] MEDS: ASPIRIN 81 MG TABLET, ENT COATED PO SCH (11:00)
[2018-12-03] MEDS: CEFTRIAXONE 1 GM/D5W RTU 1 GM/50 ML RTUPB IV SCH (11:00)
[2018-12-03] MEDS: CETIRIZINE 10 MG TABLET PO SCH (11:00)
--- NOTE | 2018-12-03 11:14 | PDOC PROGRESS REPORT ---
Subjective Progress Note for:: 12/03/18 Subjective:: Patient is currently extubated currently on a floor bed status Patient's denied any chest pain no short of breath No other concern as per discussed with bath attendant Reason For Visit: BILATERIAL LOBAR PNEUMONIA, ACUTE RESPIRATORY FAIL Physical Exam Vital Signs: Temp Pulse Resp BP Pulse Ox 99.5 F 101 H 38 H 121/77 100 12/03/18 08:00 12/03/18 08:00 12/03/18 08:00 12/03/18 08:00 12/03/18 08:00 Intake & Output 12/02/18 12/03/18 12/04/18 06:59 06:59 06:59 Intake Total 1100 600 Output Total 1425 2445 Balance -325 -1845 Weight 171 kg 171 kg General appearance: PRESENT: no acute distress, well-developed, well-nourished Head exam: PRESENT: atraumatic, normocephalic Eye exam: PRESENT: conjunctiva pink, EOMI, PERRLA. ABSENT: scleral icterus Ear exam: PRESENT: normal external ear exam Mouth exam: PRESENT: moist, tongue midline Neck exam: PRESENT: full ROM. ABSENT: carotid bruit, JVD, lymphadenopathy, thyromegaly Respiratory exam: PRESENT: clear to auscultation sofya Cardiovascular exam: PRESENT: RRR. ABSENT: diastolic murmur, rubs, systolic murmur Pulses: PRESENT: normal dorsalis pedis pul, +2 pedal pulses bilateral Vascular exam: PRESENT: normal capillary refill GI/Abdominal exam: PRESENT: normal bowel sounds, soft. ABSENT: distended, guarding, mass, organolmegaly, rebound, tenderness Rectal exam: PRESENT: deferred Neurological exam: PRESENT: alert, awake, oriented to person, oriented to place, oriented to time, oriented to situation, CN II-XII grossly intact. ABSENT: motor sensory deficit Psychiatric exam: PRESENT: appropriate affect, normal mood. ABSENT: homicidal ideation, suicidal ideation Skin exam: PRESENT: dry, intact, warm. ABSENT: cyanosis, rash Results Laboratory Results: 12/01/18 07:49 12/01/18 07:49 11/30/18 11/30/18 11/30/18 09:11 19:31 19:31 Creatine Kinase 290 H CK-MB (CK-2) 1.60 Troponin I 0.686 0.226 12/01/18 12/01/18 12/01/18 01:31 01:31 07:49 Creatine Kinase 258 H 171 H CK-MB (CK-2) 0.89 Troponin I 0.155 12/01/18 07:49 Creatine Kinase CK-MB (CK-2) 0.58 Troponin I 0.116 Impressions: Chest X-Ray 12/01/18 00:00 IMPRESSION: There is slightly increased opacification the right lung suggestive of extensive pneumonia. Cannot exclude a limited pneumonia in the left lower lobe. There is cardiomegaly with no katya pulmonary edema. Assessment & Plan - Diagnosis (1) Aspiration pneumonia Is this a current diagnosis for this admission?: Yes (2) Respiratory failure with hypoxia Qualifiers: Chronicity: acute Qualified Code(s): J96.01 - Acute respiratory failure with hypoxia Is this a current diagnosis for this admission?: Yes - Time Time Spent with patient: 15-24 minutes Medications reviewed and adjusted accordingly: Yes Anticipated discharge: Home Within: Other - Plan Summary Plan Summary: Continues to current antibiotics Physical therapy evaluations
--- NOTE | 2018-12-03 13:43 | PDOC PROGRESS REPORT ---
Subjective Progress Note for:: 12/03/18 Subjective:: Pt has no complaints Reason For Visit: BILATERIAL LOBAR PNEUMONIA, ACUTE RESPIRATORY FAIL Physical Exam Vital Signs: Temp Pulse Resp BP Pulse Ox 99.5 F 101 H 38 H 121/77 100 12/03/18 08:00 12/03/18 08:00 12/03/18 08:00 12/03/18 08:00 12/03/18 08:00 Intake & Output 12/02/18 12/03/18 12/04/18 06:59 06:59 06:59 Intake Total 1100 600 240 Output Total 1425 2445 Balance -325 -1845 240 Weight 171 kg 171 kg General appearance: PRESENT: no acute distress, cooperative Head exam: PRESENT: atraumatic, normocephalic Eye exam: PRESENT: conjunctiva pink, EOMI, PERRLA. ABSENT: scleral icterus Ear exam: PRESENT: normal external ear exam Mouth exam: PRESENT: moist, tongue midline Neck exam: PRESENT: full ROM. ABSENT: carotid bruit, JVD, lymphadenopathy, thyromegaly Respiratory exam: PRESENT: clear to auscultation sofya, decreased breath sounds, unlabored Cardiovascular exam: PRESENT: RRR Vascular exam: PRESENT: normal capillary refill GI/Abdominal exam: PRESENT: normal bowel sounds, tenderness Rectal exam: PRESENT: deferred Extremities exam: PRESENT: pedal edema Musculoskeletal exam: PRESENT: full ROM, normal inspection Neurological exam: PRESENT: alert, oriented to person, oriented to place, oriented to time, oriented to situation Psychiatric exam: PRESENT: appropriate affect, normal mood. ABSENT: homicidal ideation, suicidal ideation Skin exam: PRESENT: dry, intact, warm. ABSENT: cyanosis, rash Results Laboratory Results: 12/01/18 07:49 12/01/18 07:49 11/30/18 11/30/18 11/30/18 09:11 19:31 19:31 Creatine Kinase 290 H CK-MB (CK-2) 1.60 Troponin I 0.686 0.226 12/01/18 12/01/18 12/01/18 01:31 01:31 07:49 Creatine Kinase 258 H 171 H CK-MB (CK-2) 0.89 Troponin I 0.155 12/01/18 07:49 Creatine Kinase CK-MB (CK-2) 0.58 Troponin I 0.116 Impressions: Chest X-Ray 12/01/18 00:00 IMPRESSION: There is slightly increased opacification the right lung suggestive of extensive pneumonia. Cannot exclude a limited pneumonia in the left lower lobe. There is cardiomegaly with no katya pulmonary edema. Assessment & Plan - Diagnosis (1) Aspiration pneumonia due to inhalation of vomitus Is this a current diagnosis for this admission?: Yes Plan: Improving steadily. Off bipap, on O2 by cannula with good O2 sats in the 90s. Has been oob. Awaiting floor bed. (2) Hypoxia Is this a current diagnosis for this admission?: Yes Plan: Resolved - Time Time Spent with patient: 15-24 minutes Medications reviewed and adjusted accordingly: Yes Anticipated discharge: Home Within: within 48 hours - Inpatient Certification Medical Necessity: Risk of Complication if Not Cared For in Hospital
[2018-12-03] MEDS: ACETAMINOPHEN 325 MG TABLET PO PRN ×2 (16:15→21:36)
[2018-12-03] MEDS: GUAIFENESIN/D-METHORPHAN (200-20 MG) SYRUP 10 ML PO PRN (21:34)
[2018-12-03] MEDS: FAMOTIDINE 20 MG TABLET PO SCH (21:34)
[2018-12-04] MEDS: GUAIFENESIN/D-METHORPHAN (200-20 MG) SYRUP 10 ML PO PRN ×3 (03:10→22:12)
[2018-12-04] MEDS: ACETAMINOPHEN 325 MG TABLET PO PRN ×2 (03:10→22:12)
[2018-12-04 04:07] LABS: ABSOLUTE BASOPHILS # (AUTO) 0.1 10^3/uL (0.0-0.2); ABSOLUTE EOSINOPHILS # (AUTO) 0.2 10^3/uL (0.0-0.6); ABSOLUTE LYMPHOCYTES (AUTO) 2.1 10^3/uL (0.5-4.7); ABSOLUTE NEUT (AUTO) 8.8 10^3/uL (1.7-8.2); BASOPHILS % (AUTO) 0.8 % (0-2); EOSINOPHILS % (AUTO) 1.8 % (0-6); HEMATOCRIT 32.7 % (36.0-47.0); HEMOGLOBIN 10.8 g/dL (12.0-15.5); LYMPHOCYTES % (AUTO) 16.8 % (13-45); MEAN CORPUSCULAR HEMOGLOBIN 29.2 pg (27.0-33.4); MEAN CORPUSCULAR VOLUME 88 fl (80-97); MONOCYTES % (AUTO) 8.5 % (3-13); PLATELET COUNT 231 10^3/uL (150-450); RED CELL DISTRIBUTION WIDTH 13.8 % (11.5-14.0); SEGMENTED NEUTROPHILS % (AUTO) 72.1 % (42-78); TOTAL CELLS COUNTED % (AUTO) 100 %; WHITE BLOOD COUNT 12.2 10^3/uL (4.0-10.5)
[2018-12-04 04:32] LABS: ANION GAP 9 (5-19); BLOOD UREA NITROGEN 9 mg/dL (7-20); CALCIUM 8.3 mg/dL (8.4-10.2); CARBON DIOXIDE 29 mmol/L (22-30); CHLORIDE 106 mmol/L (98-107); GLUCOSE 95 mg/dL (75-110); POTASSIUM 3.7 mmol/L (3.6-5.0)
--- NOTE | 2018-12-04 09:35 | PDOC PROGRESS REPORT ---
Subjective Progress Note for:: 12/04/18 Subjective:: Patient is currently doing well Patient's denied any chest pain Patient is denied any short of breath Patient was came from the ICU yesterday with aspiration pneumonia I noticed the patient's troponin was elevated in ICU Reason For Visit: BILATERIAL LOBAR PNEUMONIA, ACUTE RESPIRATORY FAIL Physical Exam Vital Signs: Temp Pulse Resp BP Pulse Ox 98.0 F 96 28 H 128/73 H 95 12/04/18 07:32 12/04/18 07:32 12/04/18 07:32 12/04/18 07:32 12/04/18 07:32 Intake & Output 12/03/18 12/04/18 12/05/18 06:59 06:59 06:59 Intake Total 600 540 Output Total 2445 Balance -1845 540 Weight 171 kg 169 kg General appearance: PRESENT: no acute distress, well-developed, well-nourished Head exam: PRESENT: atraumatic, normocephalic Eye exam: PRESENT: conjunctiva pink, EOMI, PERRLA. ABSENT: scleral icterus Ear exam: PRESENT: normal external ear exam Mouth exam: PRESENT: moist, tongue midline Neck exam: PRESENT: full ROM. ABSENT: carotid bruit, JVD, lymphadenopathy, thyromegaly Respiratory exam: PRESENT: clear to auscultation sofya Cardiovascular exam: PRESENT: RRR. ABSENT: diastolic murmur, rubs, systolic murmur Pulses: PRESENT: normal dorsalis pedis pul, +2 pedal pulses bilateral Vascular exam: PRESENT: normal capillary refill GI/Abdominal exam: PRESENT: normal bowel sounds, soft. ABSENT: distended, guarding, mass, organolmegaly, rebound, tenderness Rectal exam: PRESENT: deferred Neurological exam: PRESENT: alert, awake, oriented to person, oriented to place, oriented to time, oriented to situation, CN II-XII grossly intact. ABSENT: motor sensory deficit Psychiatric exam: PRESENT: appropriate affect, normal mood. ABSENT: homicidal ideation, suicidal ideation Skin exam: PRESENT: dry, intact, warm. ABSENT: cyanosis, rash Results Laboratory Results: 12/04/18 03:13 12/04/18 03:13 12/04/18 12/04/18 03:13 03:13 WBC 12.2 H RBC 3.70 L Hgb 10.8 L Hct 32.7 L MCV 88 MCH 29.2 MCHC 33.0 RDW 13.8 Plt Count 231 Seg Neutrophils % 72.1 Sodium 143.5 Potassium 3.7 Chloride 106 Carbon Dioxide 29 Anion Gap 9 BUN 9 Creatinine 0.60 Est GFR ( Amer) > 60 Glucose 95 Calcium 8.3 L 11/30/18 11/30/18 11/30/18 09:11 19:31 19:31 Creatine Kinase 290 H CK-MB (CK-2) 1.60 Troponin I 0.686 0.226 12/01/18 12/01/18 12/01/18 01:31 01:31 07:49 Creatine Kinase 258 H 171 H CK-MB (CK-2) 0.89 Troponin I 0.155 12/01/18 07:49 Creatine Kinase CK-MB (CK-2) 0.58 Troponin I 0.116 Impressions: Chest X-Ray 12/01/18 00:00 IMPRESSION: There is slightly increased opacification the right lung suggestive of extensive pneumonia. Cannot exclude a limited pneumonia in the left lower lobe. There is cardiomegaly with no katya pulmonary edema. Assessment & Plan - Diagnosis (1) Aspiration pneumonia Is this a current diagnosis for this admission?: Yes Plan: Continue IV antibiotics (2) Respiratory failure with hypoxia Qualifiers: Chronicity: acute Qualified Code(s): J96.01 - Acute respiratory failure with hypoxia Is this a current diagnosis for this admission?: Yes (3) Elevated troponin Is this a current diagnosis for this admission?: Yes Plan: We will repeat the EKG - Time Time Spent with patient: 15-24 minutes Medications reviewed and adjusted accordingly: Yes Anticipated discharge: Home Within: Other - Plan Summary Plan Summary: Get the speech therapy evaluations for the aspirations The current medications Patients probably need a sleep study
[2018-12-04] MEDS: CEFTRIAXONE 1 GM/D5W RTU 1 GM/50 ML RTUPB IV SCH (11:26)
[2018-12-04] MEDS: CETIRIZINE 10 MG TABLET PO SCH (11:27)
[2018-12-04] MEDS: GABAPENTIN 300 MG CAPSULE PO SCH ×2 (11:27→22:12)
[2018-12-04] MEDS: ASPIRIN 81 MG TABLET, ENT COATED PO SCH (11:27)
[2018-12-04] MEDS: AZITHROMYCIN 500 MG in DEXTROSE 5%-WATER 250 ML IV SCH (11:27)
[2018-12-04] MEDS: ENOXAPARIN SODIUM INJ 40 MG/0.4 ML DISP.SYRIN SUBCUT SCH (11:28)
[2018-12-04] MEDS: FAMOTIDINE 20 MG TABLET PO SCH (22:13)
--- NOTE | 2018-12-05 02:15 | EKG REPORT ---
SEVERITY:- NORMAL ECG - SINUS RHYTHM : Confirmed by: Silvestre Cardenas 05-Dec-2018 02:15:27
[2018-12-05 04:38] LABS: ANION GAP 7 (5-19); BLOOD UREA NITROGEN 9 mg/dL (7-20); CALCIUM 8.6 mg/dL (8.4-10.2); CARBON DIOXIDE 30 mmol/L (22-30); CHLORIDE 104 mmol/L (98-107); GLUCOSE 98 mg/dL (75-110); POTASSIUM 3.8 mmol/L (3.6-5.0)
[2018-12-05] MEDS: GUAIFENESIN/D-METHORPHAN (200-20 MG) SYRUP 10 ML PO PRN ×2 (08:23→15:31)
[2018-12-05] MEDS: GABAPENTIN 300 MG CAPSULE PO SCH ×2 (10:29→21:53)
[2018-12-05] MEDS: ASPIRIN 81 MG TABLET, ENT COATED PO SCH (10:29)
[2018-12-05] MEDS: CETIRIZINE 10 MG TABLET PO SCH (10:29)
[2018-12-05] MEDS: CEFTRIAXONE 1 GM/D5W RTU 1 GM/50 ML RTUPB IV SCH (10:29)
[2018-12-05] MEDS: ENOXAPARIN SODIUM INJ 40 MG/0.4 ML DISP.SYRIN SUBCUT SCH (10:30)
[2018-12-05] MEDS: AZITHROMYCIN 500 MG in DEXTROSE 5%-WATER 250 ML IV SCH (11:27)
[2018-12-05] MEDS: ACETAMINOPHEN 325 MG TABLET PO PRN (19:44)
--- NOTE | 2018-12-05 20:31 | PDOC PROGRESS REPORT ---
Subjective Progress Note for:: 12/05/18 Subjective:: Patient reported improvement in her breathing and currently on nasal cannula supplementation at 2L/min. No chest pain. No nausea, vomiting or abdominal pain. Tolerating transfer from bed and participated in ambulatory PT on the floor. Reason For Visit: BILATERIAL LOBAR PNEUMONIA, ACUTE RESPIRATORY FAIL Physical Exam Vital Signs: Temp Pulse Resp BP Pulse Ox 99.1 F 103 H 20 126/98 H 98 12/05/18 15:44 12/05/18 15:44 12/05/18 15:44 12/05/18 15:44 12/05/18 15:44 Intake & Output 12/04/18 12/05/18 12/06/18 06:59 06:59 06:59 Intake Total 540 1050 1826 Balance 540 1050 1826 Weight 169 kg 167.8 kg Physical Exam: General appearance: PRESENT: mild distress - on supplemental oxygen via nasal cannula, morbidly obese Head exam: PRESENT: atraumatic, normocephalic Eye exam: PRESENT: conjunctiva pink. ABSENT: pallor, scleral icterus Ear exam: PRESENT: normal external ear exam Mouth exam: PRESENT: moist Respiratory exam: PRESENT: crackles, decreased breath sounds Cardiovascular exam: PRESENT: RRR. ABSENT: diastolic murmur, rubs, systolic murmur GI/Abdominal exam: PRESENT: normal bowel sounds, soft. ABSENT: distended, guarding, mass, organomegaly, rebound, tenderness Extremities exam: ABSENT: pedal edema Neurological exam: PRESENT: alert, awake, oriented to person, oriented to place, oriented to time, oriented to situation, CN II-XII grossly intact. ABSENT: motor sensory deficit Psychiatric exam: PRESENT: appropriate affect, normal mood. ABSENT: homicidal ideation, suicidal ideation Skin exam: PRESENT: dry, warm Results Laboratory Results: 12/04/18 03:13 12/05/18 03:42 12/05/18 03:42 Sodium 140.8 Potassium 3.8 Chloride 104 Carbon Dioxide 30 Anion Gap 7 BUN 9 Creatinine 0.41 L Est GFR ( Amer) > 60 Glucose 98 Calcium 8.6 11/30/18 11:07 Blood Blood Culture - Final NO GROWTH IN 5 DAYS 11/30/18 09:11 Blood Blood Culture - Final NO GROWTH IN 5 DAYS 11/30/18 11/30/18 11/30/18 09:11 19:31 19:31 Creatine Kinase 290 H CK-MB (CK-2) 1.60 Troponin I 0.686 0.226 12/01/18 12/01/18 12/01/18 01:31 01:31 07:49 Creatine Kinase 258 H 171 H CK-MB (CK-2) 0.89 Troponin I 0.155 12/01/18 07:49 Creatine Kinase CK-MB (CK-2) 0.58 Troponin I 0.116 Impressions: Chest X-Ray 12/01/18 00:00 IMPRESSION: There is slightly increased opacification the right lung suggestive of extensive pneumonia. Cannot exclude a limited pneumonia in the left lower lobe. There is cardiomegaly with no katya pulmonary edema. Assessment & Plan - Diagnosis (1) Respiratory failure with hypoxia Qualifiers: Chronicity: acute Qualified Code(s): J96.01 - Acute respiratory failure with hypoxia Is this a current diagnosis for this admission?: Yes (2) Community acquired pneumonia Qualifiers: Laterality: right Lung location: upper lobe of lung Qualified Code(s): J18.1 - Lobar pneumonia, unspecified organism Is this a current diagnosis for this admission?: Yes (3) Elevated troponin Is this a current diagnosis for this admission?: Yes (4) Elevated lactic acid level Is this a current diagnosis for this admission?: Yes (5) Acute renal failure Qualifiers: Acute renal failure type: unspecified Qualified Code(s): N17.9 - Acute kidney failure, unspecified Is this a current diagnosis for this admission?: Yes (6) Osteoarthritis of knee Qualifiers: Osteoarthritis type: primary Laterality: unspecified laterality Qualified Code(s): M17.10 - Unilateral primary osteoarthritis, unspecified knee Is this a current diagnosis for this admission?: Yes (7) Morbid obesity with BMI of 70 and over, adult Is this a current diagnosis for this admission?: Yes - Time Time Spent with patient: 25-34 minutes Medications reviewed and adjusted accordingly: Yes Anticipated discharge: Home with Homehealth Within: Other - Inpatient Certification Based on my medical assessment, after consideration of the patient's comorbidities, presenting symptoms, or acuity I expect that the services needed warrant INPATIENT care.: Yes I certify that my determination is in accordance with my understanding of Medicare's requirements for reasonable and necessary INPATIENT services [42 CFR 412.3e].: Yes Medical Necessity: Significant Comorbidiites Make Outpatient Treatment Too Risky, Need Close Monitoring Due to Risk of Patient Decompensation, Need For IV Fluids, Need For Continuous Telemetry Monitoring, Need for IV Antibiotics, Risk of Complication if Not Cared For in Hospital, Risk of Diagnosis Which Will Require Inpatient Eval/Care/Monitoring 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 Encouraged continue effort in ambulatory exercise. If she continue to desaturate, she may need supplemental oxygen while sleeping at home upon discharge.
[2018-12-05] MEDS: FAMOTIDINE 20 MG TABLET PO SCH (21:53)
[2018-12-06 05:47] LABS: ANION GAP 7 (5-19); BLOOD UREA NITROGEN 9 mg/dL (7-20); CALCIUM 8.7 mg/dL (8.4-10.2); CARBON DIOXIDE 31 mmol/L (22-30); CHLORIDE 106 mmol/L (98-107); GLUCOSE 90 mg/dL (75-110); POTASSIUM 4.3 mmol/L (3.6-5.0)
[2018-12-06] MEDS: CEFTRIAXONE 1 GM/D5W RTU 1 GM/50 ML RTUPB IV SCH (09:32)
[2018-12-06] MEDS: GABAPENTIN 300 MG CAPSULE PO SCH ×2 (09:37→21:58)
[2018-12-06] MEDS: ENOXAPARIN SODIUM INJ 40 MG/0.4 ML DISP.SYRIN SUBCUT SCH (09:37)
[2018-12-06] MEDS: ASPIRIN 81 MG TABLET, ENT COATED PO SCH (09:37)
[2018-12-06] MEDS: CETIRIZINE 10 MG TABLET PO SCH (09:37)
[2018-12-06] MEDS: TRAMADOL HCL 50 MG TABLET PO PRN ×2 (09:40→15:49)
[2018-12-06] MEDS: GUAIFENESIN/D-METHORPHAN (200-20 MG) SYRUP 10 ML PO PRN ×3 (09:57→22:07)
[2018-12-06] MEDS: AZITHROMYCIN 500 MG in DEXTROSE 5%-WATER 250 ML IV SCH (10:26)
--- NOTE | 2018-12-06 19:48 | PDOC PROGRESS REPORT ---
Subjective Progress Note for:: 12/06/18 Subjective:: Participated in PT session very well today without supplemental oxygen. She has maintain satisfactory oxygen saturation so far today off supplemental oxygen via nasal cannula. No chest pain. Continue to experience unproductive cough. No fever or chills. No nausea, vomiting, or abdominal pain. Tolerating oral feeding with increase intake so far today. Reason For Visit: BILATERIAL LOBAR PNEUMONIA, ACUTE RESPIRATORY FAIL Physical Exam Vital Signs: Temp Pulse Resp BP Pulse Ox 99.1 F 105 H 18 123/70 96 12/06/18 17:18 12/06/18 17:18 12/06/18 17:18 12/06/18 17:18 12/06/18 17:18 Intake & Output 12/05/18 12/06/18 12/07/18 06:59 06:59 06:59 Intake Total 1050 2229 1140 Balance 1050 2229 1140 Weight 167.8 kg 168 kg Physical Exam: General appearance: PRESENT: No acute distress, morbidly obese Head exam: PRESENT: atraumatic, normocephalic Eye exam: PRESENT: conjunctiva pink. ABSENT: pallor, scleral icterus Ear exam: PRESENT: normal external ear exam Mouth exam: PRESENT: moist Respiratory exam: PRESENT: crackles, decreased breath sounds Cardiovascular exam: PRESENT: RRR. ABSENT: diastolic murmur, rubs, systolic murmur GI/Abdominal exam: PRESENT: normal bowel sounds, soft. ABSENT: distended, guarding, mass, organomegaly, rebound, tenderness Extremities exam: ABSENT: pedal edema Neurological exam: PRESENT: alert, awake, oriented to person, oriented to place, oriented to time, oriented to situation, CN II-XII grossly intact. ABSENT: motor sensory deficit Psychiatric exam: PRESENT: appropriate affect, normal mood. ABSENT: homicidal ideation, suicidal ideation Skin exam: PRESENT: dry, warm Results Laboratory Results: 12/04/18 03:13 12/06/18 04:23 12/06/18 04:23 Sodium 143.6 Potassium 4.3 Chloride 106 Carbon Dioxide 31 H Anion Gap 7 BUN 9 Creatinine 0.52 Est GFR ( Amer) > 60 Glucose 90 Calcium 8.7 11/30/18 11/30/18 11/30/18 09:11 19:31 19:31 Creatine Kinase 290 H CK-MB (CK-2) 1.60 Troponin I 0.686 0.226 12/01/18 12/01/18 12/01/18 01:31 01:31 07:49 Creatine Kinase 258 H 171 H CK-MB (CK-2) 0.89 Troponin I 0.155 12/01/18 07:49 Creatine Kinase CK-MB (CK-2) 0.58 Troponin I 0.116 Impressions: Chest X-Ray 12/01/18 00:00 IMPRESSION: There is slightly increased opacification the right lung suggestive of extensive pneumonia. Cannot exclude a limited pneumonia in the left lower lobe. There is cardiomegaly with no katya pulmonary edema. Assessment & Plan - Diagnosis (1) Respiratory failure with hypoxia Qualifiers: Chronicity: acute Qualified Code(s): J96.01 - Acute respiratory failure with hypoxia Is this a current diagnosis for this admission?: Yes (2) Community acquired pneumonia Qualifiers: Laterality: right Lung location: upper lobe of lung Qualified Code(s): J18.1 - Lobar pneumonia, unspecified organism Is this a current diagnosis for this admission?: Yes (3) Elevated troponin Is this a current diagnosis for this admission?: Yes (4) Elevated lactic acid level Is this a current diagnosis for this admission?: Yes (5) Acute renal failure Qualifiers: Acute renal failure type: unspecified Qualified Code(s): N17.9 - Acute kidney failure, unspecified Is this a current diagnosis for this admission?: Yes (6) Osteoarthritis of knee Qualifiers: Osteoarthritis type: primary Laterality: unspecified laterality Qualified Code(s): M17.10 - Unilateral primary osteoarthritis, unspecified knee Is this a current diagnosis for this admission?: Yes (7) Morbid obesity with BMI of 70 and over, adult Is this a current diagnosis for this admission?: Yes - Time Time Spent with patient: 25-34 minutes Medications reviewed and adjusted accordingly: Yes Anticipated discharge: Home Within: Other - Inpatient Certification Based on my medical assessment, after consideration of the patient's comorbidities, presenting symptoms, or acuity I expect that the services needed warrant INPATIENT care.: Yes I certify that my determination is in accordance with my understanding of Medicare's requirements for reasonable and necessary INPATIENT services [42 CFR 412.3e].: Yes Medical Necessity: Significant Comorbidiites Make Outpatient Treatment Too Risky, Need Close Monitoring Due to Risk of Patient Decompensation, Need For IV Fluids, Need For Continuous Telemetry Monitoring, Need for Pain Control, Need for IV Antibiotics, Risk of Complication if Not Cared For in Hospital, Risk of Diagnosis Which Will Require Inpatient Eval/Care/Monitoring 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 Start on incentive spirometry and flutter device to improve lung status. Maintain on all other current medication management.
[2018-12-06] MEDS: FAMOTIDINE 20 MG TABLET PO SCH (21:58)
[2018-12-07 06:47] LABS: ABSOLUTE EOSINOPHILS # (AUTO) 0.2 10^3/uL (0.0-0.6); ABSOLUTE LYMPHOCYTES (AUTO) 2.4 10^3/uL (0.5-4.7); ABSOLUTE MONOCYTES (AUTO) 0.8 10^3/uL (0.1-1.4); ABSOLUTE NEUT (AUTO) 6.8 10^3/uL (1.7-8.2); BASOPHILS % (AUTO) 0.4 % (0-2); EOSINOPHILS % (AUTO) 1.9 % (0-6); HEMATOCRIT 34.5 % (36.0-47.0); HEMOGLOBIN 11.6 g/dL (12.0-15.5); LYMPHOCYTES % (AUTO) 23.2 % (13-45); MEAN CORPUSCULAR HEMOGLOBIN 29.9 pg (27.0-33.4); MEAN CORPUSCULAR HGB CONC 33.7 g/dL (32.0-36.0); MEAN CORPUSCULAR VOLUME 89 fl (80-97); MONOCYTES % (AUTO) 8.1 % (3-13); PLATELET COUNT 306 10^3/uL (150-450); RED BLOOD COUNT 3.89 10^6/uL (3.72-5.28); SEGMENTED NEUTROPHILS % (AUTO) 66.4 % (42-78); TOTAL CELLS COUNTED % (AUTO) 100 %; WHITE BLOOD COUNT 10.2 10^3/uL (4.0-10.5)
[2018-12-07 07:09] LABS: ALKALINE PHOSPHATASE 72 U/L (38-126); ANION GAP 9 (5-19); ASPARTATE AMINO TRANSFERASE 44 U/L (14-36); BILIRUBIN,DIRECT 0.1 mg/dL (0.0-0.4); BILIRUBIN,TOTAL 0.3 mg/dL (0.2-1.3); BLOOD UREA NITROGEN 9 mg/dL (7-20); CALCIUM 8.7 mg/dL (8.4-10.2); CARBON DIOXIDE 29 mmol/L (22-30); CHLORIDE 104 mmol/L (98-107); GLUCOSE 92 mg/dL (75-110); POTASSIUM 4.2 mmol/L (3.6-5.0); TOTAL PROTEIN 6.4 g/dL (6.3-8.2)
--- NOTE | 2018-12-07 08:43 | RADIOLOGY REPORT (SQ) ---
EXAM DESCRIPTION: CHEST 2 VIEWS COMPLETED DATE/TIME: 12/07/2018 8:33 am REASON FOR STUDY: pneumonia COMPARISON: 12/01/2018 EXAM PARAMETERS: NUMBER OF VIEWS: two views TECHNIQUE: Digital Frontal and Lateral radiographic views of the chest acquired. RADIATION DOSE: NA LIMITATIONS: none FINDINGS: LUNGS AND PLEURA: Persistent diffuse right-sided airspace disease although improved from p rior exam. Left lung field is grossly clear. Possible small right effusion. MEDIASTINUM AND HILAR STRUCTURES: No masses or contour abnormalities. HEART AND VASCULAR STRUCTURES: Heart normal size. No evidence for failure. BONES: No acute findings. HARDWARE: None in the chest. OTHER: No other significant finding. IMPRESSION: Persistent diffuse right-sided infiltrate consistent with pneumonia or asymmetric edema. This is improved from prior study. TECHNICAL DOCUMENTATION: JOB ID: [id number] [email or web address] All Rights Reserved Reading location - IP/workstation name: [email or web address]
[2018-12-07] MEDS: ENOXAPARIN SODIUM INJ 40 MG/0.4 ML DISP.SYRIN SUBCUT SCH (09:31)
[2018-12-07] MEDS: GABAPENTIN 300 MG CAPSULE PO SCH ×2 (09:31→21:33)
[2018-12-07] MEDS: CETIRIZINE 10 MG TABLET PO SCH (09:31)
[2018-12-07] MEDS: ASPIRIN 81 MG TABLET, ENT COATED PO SCH (09:31)
[2018-12-07] MEDS: CEFTRIAXONE 1 GM/D5W RTU 1 GM/50 ML RTUPB IV SCH (09:31)
[2018-12-07] MEDS: AZITHROMYCIN 500 MG in DEXTROSE 5%-WATER 250 ML IV SCH (10:40)
[2018-12-07] MEDS: GUAIFENESIN/D-METHORPHAN (200-20 MG) SYRUP 10 ML PO PRN ×2 (10:40→21:40)
[2018-12-07] MEDS: TRAMADOL HCL 50 MG TABLET PO PRN ×2 (10:40→21:40)
--- NOTE | 2018-12-07 21:32 | PDOC PROGRESS REPORT ---
Subjective Progress Note for:: 12/07/18 Subjective:: No chest pain. Breathing is better. Continue to experience unproductive cough. No fever or chills. No nausea, vomiting, or abdominal pain. Reason For Visit: BILATERIAL LOBAR PNEUMONIA, ACUTE RESPIRATORY FAIL Physical Exam Vital Signs: Temp Pulse Resp BP Pulse Ox 97.9 F 94 18 107/56 L 97 12/07/18 15:12 12/07/18 15:12 12/07/18 15:12 12/07/18 15:12 12/07/18 15:12 Intake & Output 12/06/18 12/07/18 12/08/18 06:59 06:59 06:59 Intake Total 2229 1140 894 Balance 2229 1140 894 Weight 168 kg 168.1 kg Physical Exam: General appearance: PRESENT: No acute distress, morbidly obese Head exam: PRESENT: atraumatic, normocephalic Eye exam: PRESENT: conjunctiva pink. ABSENT: pallor, scleral icterus Ear exam: PRESENT: normal external ear exam Mouth exam: PRESENT: moist Respiratory exam: PRESENT: crackles, decreased breath sounds Cardiovascular exam: PRESENT: RRR. ABSENT: diastolic murmur, rubs, systolic murmur GI/Abdominal exam: PRESENT: normal bowel sounds, soft. ABSENT: distended, guarding, mass, organomegaly, rebound, tenderness Extremities exam: ABSENT: pedal edema Neurological exam: PRESENT: alert, awake, oriented to person, oriented to place, oriented to time, oriented to situation, CN II-XII grossly intact. ABSENT: motor sensory deficit Psychiatric exam: PRESENT: appropriate affect, normal mood. ABSENT: homicidal ideation, suicidal ideation Skin exam: PRESENT: dry, warm, rash in breast fold bilaterally Results Laboratory Results: 12/07/18 06:03 12/07/18 06:03 12/07/18 12/07/18 06:03 06:03 WBC 10.2 RBC 3.89 Hgb 11.6 L Hct 34.5 L MCV 89 MCH 29.9 MCHC 33.7 RDW 14.0 Plt Count 306 Seg Neutrophils % 66.4 Sodium 142.0 Potassium 4.2 Chloride 104 Carbon Dioxide 29 Anion Gap 9 BUN 9 Creatinine 0.57 Est GFR ( Amer) > 60 Glucose 92 Calcium 8.7 Total Bilirubin 0.3 AST 44 H Alkaline Phosphatase 72 Total Protein 6.4 Albumin 3.0 L 11/30/18 11/30/18 11/30/18 09:11 19:31 19:31 Creatine Kinase 290 H CK-MB (CK-2) 1.60 Troponin I 0.686 0.226 12/01/18 12/01/18 12/01/18 01:31 01:31 07:49 Creatine Kinase 258 H 171 H CK-MB (CK-2) 0.89 Troponin I 0.155 12/01/18 07:49 Creatine Kinase CK-MB (CK-2) 0.58 Troponin I 0.116 Impressions: Chest X-Ray 12/07/18 06:00 IMPRESSION: Persistent diffuse right-sided infiltrate consistent with pneumonia or asymmetric edema. This is improved from prior study. Assessment & Plan - Diagnosis (1) Respiratory failure with hypoxia Qualifiers: Chronicity: acute Qualified Code(s): J96.01 - Acute respiratory failure with hypoxia Is this a current diagnosis for this admission?: Yes (2) Community acquired pneumonia Qualifiers: Laterality: right Lung location: upper lobe of lung Qualified Code(s): J18.1 - Lobar pneumonia, unspecified organism Is this a current diagnosis for this admission?: Yes Plan: D/C IV Zithromax and Rocephin. Start on oral Zithromax 500 mg po daily and Cefdinir 300 mg po bid. (3) Elevated troponin Is this a current diagnosis for this admission?: Yes (4) Elevated lactic acid level Is this a current diagnosis for this admission?: Yes (5) Acute renal failure Qualifiers: Acute renal failure type: unspecified Qualified Code(s): N17.9 - Acute kidney failure, unspecified Is this a current diagnosis for this admission?: Yes (6) Osteoarthritis of knee Qualifiers: Osteoarthritis type: primary Laterality: unspecified laterality Qualified Code(s): M17.10 - Unilateral primary osteoarthritis, unspecified knee Is this a current diagnosis for this admission?: Yes (7) Morbid obesity with BMI of 70 and over, adult Is this a current diagnosis for this admission?: Yes (8) Skin yeast infection Is this a current diagnosis for this admission?: Yes Plan: Start on Nystatin cream topically to affected areas bid. - Time Time Spent with patient: 25-34 minutes Medications reviewed and adjusted accordingly: Yes Anticipated discharge: Home Within: within 48 hours - Inpatient Certification Based on my medical assessment, after consideration of the patient's comorbidities, presenting symptoms, or acuity I expect that the services needed warrant INPATIENT care.: Yes I certify that my determination is in accordance with my understanding of Medicare's requirements for reasonable and necessary INPATIENT services [42 CFR 412.3e].: Yes Medical Necessity: Significant Comorbidiites Make Outpatient Treatment Too Risky, Need Close Monitoring Due to Risk of Patient Decompensation, Need For IV Fluids, Need for IV Antibiotics, Risk of Complication if Not Cared For in Hospital, Risk of Diagnosis Which Will Require Inpatient Eval/Care/Monitoring Post Hospital Care: D/C Disassembler Product Documentation - Plan Summary Plan Summary: D/C IV antibiotics, start on oral therapy with Zithromax and Cefdinir. Encouraged use of incentive spirometry and flutter device. Possible discharge in next 48 hours.
[2018-12-07] MEDS: FAMOTIDINE 20 MG TABLET PO SCH (21:33)
[2018-12-07] MEDS ORDERED: NYSTATIN CREAM 15 GM TP ONE (22:30)
[2018-12-08] MEDS: ASPIRIN 81 MG TABLET, ENT COATED PO SCH (09:12)
[2018-12-08] MEDS: AZITHROMYCIN 250 MG TABLET PO SCH (09:12)
[2018-12-08] MEDS: CETIRIZINE 10 MG TABLET PO SCH (09:12)
[2018-12-08] MEDS: GABAPENTIN 300 MG CAPSULE PO SCH ×2 (09:12→21:43)
[2018-12-08] MEDS: ENOXAPARIN SODIUM INJ 40 MG/0.4 ML DISP.SYRIN SUBCUT SCH (09:12)
[2018-12-08] MEDS: NYSTATIN CREAM 15 GM TP SCH ×2 (09:13→17:32)
[2018-12-08] MEDS: CEFPODOXIME 200 MG TABLET PO SCH ×2 (09:14→21:43)
--- NOTE | 2018-12-08 19:18 | PDOC PROGRESS REPORT ---
Subjective Progress Note for:: 12/08/18 Subjective:: Patient is doing very well with participation in PT session without use of supplemental oxygen. No chest pain or difficulty with breathing. No fever or chills. No nausea, vomiting, or abdominal pain. Reason For Visit: BILATERIAL LOBAR PNEUMONIA, ACUTE RESPIRATORY FAIL Physical Exam Vital Signs: Temp Pulse Resp BP Pulse Ox 99.3 F 91 20 108/55 L 92 12/08/18 08:00 12/08/18 08:00 12/08/18 08:00 12/08/18 08:00 12/08/18 08:00 Intake & Output 12/07/18 12/08/18 12/09/18 06:59 06:59 06:59 Intake Total 1140 894 120 Balance 1140 894 120 Weight 168.1 kg 169.5 kg 169.5 kg Physical Exam: General appearance: PRESENT: No acute distress, morbidly obese Head exam: PRESENT: atraumatic, normocephalic Eye exam: PRESENT: conjunctiva pink. ABSENT: pallor, scleral icterus Ear exam: PRESENT: normal external ear exam Mouth exam: PRESENT: moist Respiratory exam: PRESENT: crackles, decreased breath sounds Cardiovascular exam: PRESENT: RRR. ABSENT: diastolic murmur, rubs, systolic murmur GI/Abdominal exam: PRESENT: normal bowel sounds, soft. ABSENT: distended, guarding, mass, organomegaly, rebound, tenderness Extremities exam: ABSENT: pedal edema Neurological exam: PRESENT: alert, awake, oriented to person, oriented to place, oriented to time, oriented to situation, CN II-XII grossly intact. ABSENT: motor sensory deficit Psychiatric exam: PRESENT: appropriate affect, normal mood. ABSENT: homicidal ideation, suicidal ideation Skin exam: PRESENT: dry, warm, rash in breast fold bilaterally Results Laboratory Results: 12/07/18 06:03 12/07/18 06:03 11/30/18 11/30/18 11/30/18 09:11 19:31 19:31 Creatine Kinase 290 H CK-MB (CK-2) 1.60 Troponin I 0.686 0.226 12/01/18 12/01/18 12/01/18 01:31 01:31 07:49 Creatine Kinase 258 H 171 H CK-MB (CK-2) 0.89 Troponin I 0.155 12/01/18 07:49 Creatine Kinase CK-MB (CK-2) 0.58 Troponin I 0.116 Impressions: Chest X-Ray 12/07/18 06:00 IMPRESSION: Persistent diffuse right-sided infiltrate consistent with pneumonia or asymmetric edema. This is improved from prior study. Assessment & Plan - Diagnosis (1) Respiratory failure with hypoxia Qualifiers: Chronicity: acute Qualified Code(s): J96.01 - Acute respiratory failure wit h hypoxia Is this a current diagnosis for this admission?: Yes (2) Community acquired pneumonia Qualifiers: Laterality: right Lung location: upper lobe of lung Qualified Code(s): J18.1 - Lobar pneumonia, unspecified organism Is this a current diagnosis for this admission?: Yes (3) Elevated troponin Is this a current diagnosis for this admission?: Yes (4) Elevated lactic acid level Is this a current diagnosis for this admission?: Yes (5) Acute renal failure Qualifiers: Acute renal failure type: unspecified Qualified Code(s): N17.9 - Acute kidney failure, unspecified Is this a current diagnosis for this admission?: Yes (6) Osteoarthritis of knee Qualifiers: Osteoarthritis type: primary Laterality: unspecified laterality Qualified Code(s): M17.10 - Unilateral primary osteoarthritis, unspecified knee Is this a current diagnosis for this admission?: Yes (7) Morbid obesity with BMI of 70 and over, adult Is this a current diagnosis for this admission?: Yes (8) Skin yeast infection Is this a current diagnosis for this admission?: Yes - Time Time Spent with patient: 25-34 minutes Medications reviewed and adjusted accordingly: Yes Anticipated discharge: Home Within: within 24 hours - Inpatient Certification Based on my medical assessment, after consideration of the patient's comorbidities, presenting symptoms, or acuity I expect that the services needed warrant INPATIENT care.: Yes I certify that my determination is in accordance with my understanding of Medicare's requirements for reasonable and necessary INPATIENT services [42 CFR 412.3e].: Yes Medical Necessity: Significant Comorbidiites Make Outpatient Treatment Too [place], Need Close Monitoring Due to Risk of Patient Decompensation, Risk of Complication if Not Cared For in Hospital, Risk of Diagnosis Which Will Require Inpatient Eval/Care/Monitoring Post Hospital Care: D/C Occupational Health Nurse Manager Documentation - Plan Summary Plan Summary: Continue current medication management. Patient aware of possible d/c home in am.
[2018-12-08] MEDS: TRAMADOL HCL 50 MG TABLET PO PRN (20:02)
[2018-12-08] MEDS: GUAIFENESIN/D-METHORPHAN (200-20 MG) SYRUP 10 ML PO PRN (20:03)
[2018-12-08] MEDS: FAMOTIDINE 20 MG TABLET PO SCH (21:43)
[2018-12-09] MEDS: CEFPODOXIME 200 MG TABLET PO SCH (09:58)
[2018-12-09] MEDS: AZITHROMYCIN 250 MG TABLET PO SCH (09:58)
[2018-12-09] MEDS: CETIRIZINE 10 MG TABLET PO SCH (09:58)
[2018-12-09] MEDS: ASPIRIN 81 MG TABLET, ENT COATED PO SCH (09:58)
[2018-12-09] MEDS: GABAPENTIN 300 MG CAPSULE PO SCH (09:58)
[2018-12-09] MEDS: ENOXAPARIN SODIUM INJ 40 MG/0.4 ML DISP.SYRIN SUBCUT SCH (10:00)
[2018-12-09] MEDS: NYSTATIN CREAM 15 GM TP SCH (10:01)
[2018-12-09 11:11] VITALS: BP 123/59
--- NOTE | 2018-12-15 00:46 | PDOC DISCHARGE SUMMARY ---
Impression - Admit/DC Date/PCP Admission Date/Primary Care Provider: 11/30/18 10:31 ALEX CERRATO Discharge Date: 12/09/18 - Discharge Diagnosis (1) Respiratory failure with hypoxia Is this a current diagnosis for this admission?: Yes (2) Community acquired pneumonia Is this a current diagnosis for this admission?: Yes (3) Elevated troponin Is this a current diagnosis for this admission?: Yes (4) Elevated lactic acid level Is this a current diagnosis for this admission?: Yes (5) Acute renal failure Is this a current diagnosis for this admission?: Yes (6) Osteoarthritis of knee Is this a current diagnosis for this admission?: Yes (7) Morbid obesity with BMI of 70 and over, adult Is this a current diagnosis for this admission?: Yes (8) Skin yeast infection Is this a current diagnosis for this admission?: Yes - Additional Information Resuscitation Status: Full Code Referrals: ALEX CERRATO MD [Primary Care Provider] - 12/14/18 10:00 am Prescriptions: Azithromycin 500 mg PO DAILY #5 tablet Benzonatate 200 mg PO TIDP PRN #30 capsule PRN Reason: Nystatin [Mycostatin Cream 15 gm] 1 applic TP BID #1 tube Cefdinir [Omnicef 300 mg Capsule] 1 cap PO BID #10 capsule Home Medications: Aspirin [Ecotrin 81 mg EC Tablet] 81 mg PO DAILY 11/30/18 Cetirizine HCl [Zyrtec 10 mg Tablet] 10 mg PO DAILY 11/30/18 Cyclobenzaprine HCl [Flexeril 10 mg Tablet] 10 mg PO BID 11/30/18 Gabapentin [Neurontin] 600 mg PO BID 11/30/18 Meloxicam [Mobic] 15 mg PO DAILY 11/30/18 Omeprazole 40 mg PO DAILY 11/30/18 Ranitidine HCl [Zantac] 300 mg PO QHS 11/30/18 Tramadol HCl [Ultram 50 mg Tablet] 50 tab PO Q6H 12/05/18 Azithromycin 500 mg PO DAILY #5 tablet 12/09/18 Benzonatate 200 mg PO TIDP PRN #30 capsule 12/09/18 Cefdinir [Omnicef 300 mg Capsule] 1 cap PO BID #10 capsule 12/09/18 Nystatin [Mycostatin Cream 15 gm] 1 applic TP BID #1 tube 12/09/18 History of Present Illiness History of Present Illness: LA LUNA is a 58 year old female known to my practice presented to the ED with several days of progressive generalized weakness, excessive sleepiness, and difficulty with breathing. She reported several episodes of postprandial vomiting and admitted to possible aspiration. She reported associated nonproductive cough, wheezing, low grade fever and worsening shortness of breath that prompted her seeking medical evaluation at the ED. Her initial evaluation was significant for tachycardia, tachypnea and hypoxemia on room air. She denied ay chest pain, palpitation, or abdominal pain. She admitted to low grade fever and self administration of Tylenol night before her presentation to the ED. she denied any recent exposure to sick individual or travel outside her usual domain. Her morbidities are as listed below. Hospital Course Hospital Course: She was admitted for lobar pneumonia probable due to aspiration and managed with iv Ceftriaxone and Azithromycin. Due to deterioration in her breathing effort and concern for impending respiratory failure, she was transferred to ICU where she stayed for a short period. She remonstrated gradual improvement and eventually taken off noninvasive respiratory support. She transition to oral antibiotic therapy and eventually discharged home on Omnicef and Zithromax for 5 days. She will followup in the office as instructed upon discharge. Physical Exam Vital Signs: Temp Pulse Resp BP Pulse Ox 98.9 F 102 H 16 105/53 L 96 12/08/18 21:07 12/08/18 21:07 12/08/18 21:07 12/08/18 21:07 12/08/18 21:07 Intake & Output 12/08/18 12/09/18 12/10/18 06:59 06:59 06:59 Intake Total 894 120 Balance 894 120 Weight 169.5 kg 164.6 kg General appearance: PRESENT: No acute distress, morbidly obese Head exam: PRESENT: atraumatic, normocephalic Eye exam: PRESENT: conjunctiva pink. ABSENT: pallor, scleral icterus Ear exam: PRESENT: normal external ear exam Mouth exam: PRESENT: moist Respiratory exam: PRESENT: crackles, decreased breath sounds Cardiovascular exam: PRESENT: RRR. ABSENT: diastolic murmur, rubs, systolic murmur GI/Abdominal exam: PRESENT: normal bowel sounds, soft. ABSENT: distended, guarding, mass, organomegaly, rebound, tenderness Extremities exam: ABSENT: pedal edema Neurological exam: PRESENT: alert, awake, oriented to person, oriented to place, oriented to time, oriented to situation, CN II-XII grossly intact. ABSENT: motor sensory deficit Psychiatric exam: PRESENT: appropriate affect, normal mood. ABSENT: homicidal ideation, suicidal ideation Skin exam: PRESENT: dry, warm, rash in breast fold bilaterally Results Laboratory Results: WBC 10.2 10^3/uL (4.0-10.5) 12/07/18 06:03 RBC 3.89 10^6/uL (3.72-5.28) 12/07/18 06:03 Hgb 11.6 g/dL (12.0-15.5) L 12/07/18 06:03 Hct 34.5 % (36.0-47.0) L 12/07/18 06:03 MCV 89 fl (80-97) 12/07/18 06:03 MCH 29.9 pg (27.0-33.4) 12/07/18 06:03 MCHC 33.7 g/dL (32.0-36.0) 12/07/18 06:03 RDW 14.0 % (11.5-14.0) 12/07/18 06:03 Plt Count 306 10^3/uL (150-450) 12/07/18 06:03 Lymph % (Auto) 23.2 % (13-45) 12/07/18 06:03 [place] % (Auto) 8.1 % (3-13) 12/07/18 06:03 Eos % (Auto) 1.9 % (0-6) 12/07/18 06:03 Baso % (Auto) 0.4 % (0-2) 12/07/18 06:03 Absolute Neuts (auto) 6.8 10^3/uL (1.7-8.2) 12/07/18 06:03 Absolute Lymphs (auto) 2.4 10^3/uL (0.5-4.7) 12/07/18 06:03 Absolute Monos (auto) 0.8 10^3/uL (0.1-1.4) 12/07/18 06:03 Absolute Eos (auto) 0.2 10^3/uL (0.0-0.6) 12/07/18 06:03 Absolute Basos (auto) 0.0 10^3/uL (0.0-0.2) 12/07/18 06:03 Seg Neutrophils % 66.4 % (42-78) 12/07/18 06:03 Carbonic Acid 1.36 mmol/L (1.05-1.35) H 12/01/18 09:05 HCO3/H2CO3 Ratio 20:1 12/01/18 09:05 ABG pH 7.41 (7.35-7.45) 12/01/18 09:05 ABG pCO2 45.3 mmHg (35-45) H 12/01/18 09:05 ABG pO2 54.4 mmHg (80-100) L 12/01/18 09:05 ABG HCO3 28.3 mmol/L (20-24) H 12/01/18 09:05 ABG Total CO2 29.7 mmol/L (21-25) H 12/01/18 09:05 ABG O2 Saturation 88.5 % (94-98) L 12/01/18 09:05 ABG Base Excess 3.2 mmol/L 12/01/18 09:05 FiO2 15L 12/01/18 09:05 Sodium 142.0 mmol/L (137-145) 12/07/18 06:03 Potassium 4.2 mmol/L (3.6-5.0) 12/07/18 06:03 Chloride 104 mmol/L (98-107) 12/07/18 06:03 Carbon Dioxide 29 mmol/L (22-30) 12/07/18 06:03 Anion Gap 9 (5-19) 12/07/18 06:03 BUN 9 mg/dL (7-20) 12/07/18 06:03 Creatinine 0.57 mg/dL (0.52-1.25) 12/07/18 06:03 Est GFR ( Amer) > 60 (>60) 12/07/18 06:03 Est GFR (MDRD) Non-Af > 60 (>60) 12/07/18 06:03 Glucose 92 mg/dL (75-110) 12/07/18 06:03 Lactic Acid 3.2 mmol/L (0.7-2.1) H 11/30/18 09:11 Calcium 8.7 mg/dL (8.4-10.2) 12/07/18 06:03 Total Bilirubin 0.3 mg/dL (0.2-1.3) 12/07/18 06:03 Direct Bilirubin 0.1 mg/dL (0.0-0.4) 12/07/18 06:03 Neonat Total Bilirubin Not Reportable 12/07/18 06:03 Neonat Direct Bilirubin Not Reportable 12/07/18 06:03 Neonat Indirect Bili Not Reportable 12/07/18 06:03 AST 44 U/L (14-36) H 12/07/18 06:03 ALT 94 U/L (<35) 12/07/18 06:03 Alkaline Phosphatase 72 U/L (38-126) 12/07/18 06:03 Creatine Kinase 171 U/L (30-135) H 12/01/18 07:49 CK-MB (CK-2) 0.58 ng/mL (<4.55) 12/01/18 07:49 Troponin I 0.116 ng/mL 12/01/18 07:49 Total Protein 6.4 g/dL (6.3-8.2) 12/07/18 06:03 Albumin 3.0 g/dL (3.5-5.0) L 12/07/18 06:03 Urine Color NESS 11/30/18 20:00 Urine Appearance CLOUDY 11/30/18 20:00 Urine pH 5.0 (5.0-9.0) 11/30/18 20:00 Ur Specific [place] 1.028 11/30/18 20:00 Urine Protein 100 mg/dL (NEGATIVE) H 11/30/18 20:00 Urine Glucose (UA) NEGATIVE mg/dL (NEGATIVE) 11/30/18 20:00 Urine Ketones TRACE mg/dL (NEGATIVE) H 11/30/18 20:00 Urine Blood SMALL (NEGATIVE) H 11/30/18 20:00 Urine Nitrite NEGATIVE (NEGATIVE) 11/30/18 20:00 Urine Bilirubin NEGATIVE (NEGATIVE) 11/30/18 20:00 Urine Urobilinogen 4.0 mg/dL (<2.0) H 11/30/18 20:00 Ur Leukocyte Esterase TRACE (NEGATIVE) H 11/30/18 20:00 Urine WBC (Auto) 33 /HPF 11/30/18 20:00 U Hyaline Cast (Auto) 15 /LPF 11/30/18 20:00 Urine Bacteria (Auto) 3+ /HPF 11/30/18 20:00 Urine WBC Clumps FEW /HPF 11/30/18 20:00 Squamous Epi Cells Auto 8 /HPF 11/30/18 20:00 Urine Mucus (Auto) MANY /LPF 11/30/18 20:00 Urine Ascorbic Acid 40 (NEGATIVE) H 11/30/18 20:00 Influenza A (Rapid) NEGATIVE (NEGATIVE) 11/30/18 10:02 Influenza B (Rapid) NEGATIVE (NEGATIVE) 11/30/18 10:02 11/30/18 11/30/18 12/01/18 09:11 19:31 01:31 CK-MB (CK-2) 1.60 0.89 Troponin I 0.686 0.226 0.155 12/01/18 07:49 CK-MB (CK-2) 0.58 Troponin I 0.116 Impressions: Chest X-Ray 11/30/18 09:11 IMPRESSION: EXTENSIVE AIRSPACE DISEASE IN THE RIGHT LUNG, LIKELY INFILTRATE SECONDARY TO PNEUMONIA. PROBABLE INFILTRATE IN THE LEFT LUNG BASE WELL. Chest X-Ray 12/01/18 00:00 IMPRESSION: There is slightly increased opacification the right lung suggestive of extensive pneumonia. Cannot exclude a limited pneumonia in the left lower lobe. There is cardiomegaly with no [place] pulmonary edema. Chest X-Ray 12/07/18 06:00 IMPRESSION: Persistent diffuse right-sided infiltrate consistent with pneumonia or asymmetric edema. This is improved from prior study. Plan Health Concerns: Continue risk of aspiration and pneumonia. Plan of Treatment: Continue on prescribed antibiotic. Maintain aspiration precautions at home. Goals: Recover from her acute illness. Stroke Is this a Stroke Patient?: No Acute Heart Failure - Is this a Heart Failure Patient?: No
== END 2018-12-09 13:20 | disposition home or self-care (01) | DRG 177 ==
LOC: ER 08:30 → EH 10:31 → 3N 11:42 → ICU 12-01 11:31 → 4N 12-03 18:53
PROVIDERS: ADMIT Internal Medicine Geriatric Medicine; ATTEND Anesthesiology
PROC: 5A09457 Assistance with Respiratory Ventilation, 24-96 Consecutive Hours, Continuous Positive Airway Pressure (ICD-10-PCS; principal; 2018-11-30)
DX: J69.0 Pneumonitis due to inhalation of food and vomit (principal); J96.01 Acute respiratory failure with hypoxia; N17.9 Acute kidney failure, unspecified; Z68.45 Body mass index [BMI] 70 or greater, adult; E66.01 Morbid (severe) obesity due to excess calories; K21.9 Gastro-esophageal reflux disease without esophagitis; B37.2 Candidiasis of skin and nail; Z96.651 Presence of right artificial knee joint; Z79.82 Long term (current) use of aspirin; Z79.899 Other long term (current) drug therapy; Z88.6 Allergy status to analgesic agent
CPT/HCPCS: 36415; 71045; 71046; 80048; 80053; 81001; 82550; 82553; 82803; 83605; 84484; 85025; 87040; 87804; 93005; 93010; 94660; 94667; 94799; 99291; J0456; J0696; J1650; J3490; J7030; J7060

== ENCOUNTER → 2020-01-05 | Outpatient (CLI) | payer MEDICARE ==
--- NOTE | 2020-01-05 17:06 | WOMENS IMAGING REPORT ---
EXAM DESCRIPTION: BILAT SCREENING MAMMO W/CAD IMAGES COMPLETED DATE/TIME: 01/05/2020 2:17 pm REASON FOR STUDY: Z12.31 ENCNTR SCREEN MAMMOGRAM FOR MALIGNANT NEOPLASM OF BREAST Z12.31 ENCNTR SCR EEN MAMMOGRAM FOR MALIGNANT NEOPLASM OF [place] COMPARISON: 2012 and subsequent. EXAM PARAMETERS: Standard craniocaudal and mediolateral oblique views of each breast recorded using digital acquisition. Read with the assistance of CAD. .[facility] - [employer] Direct Verifier Operator Version 9.2 LIMITATIONS: [employer]. FINDINGS: No suspicious masses, suspicious calcifications or architectural distortion. No areas of c oncern. IMPRESSION: NEGATIVE MAMMOGRAM. BIRADS 1 BREAST DENSITY: b. There are scattered areas of fibroglandular density. BIRAD: ASSESSMENT: 1 NEGATIVE RECOMMENDATION: ROUTINE SCREENING COMMENT: The patient has been notified of the results by letter per MQSA requirements. Additional no tification policies are in place for contacting patient with suspicious or incomplete findings. Quality ID #[id number]: The [employer] recommends an annual screening mammogram for women aged 40 years or over. This facility utilizes a reminder system to ensure that all patients receive reminder letters, and/or direct phone calls for appointments. This includes reminders for routine scr eening mammograms, diagnostic mammograms, or other Breast Imaging Interventions when appropriate. Th is patient will be placed in the appropriate reminder system. TECHNICAL DOCUMENTATION: FINDING NUMBER: (1) ASSESSMENT: (1) JOB ID: [id number] 2010 [employer]- All Rights Reserved Reading location - IP/workstation name: [email or web address]
== END ==
LOC: WI 13:48
PROVIDERS: ATTEND Nurse Practitioner Adult Health
DX: Z12.31 Encounter for screening mammogram for malignant neoplasm of breast (principal)
CPT/HCPCS: 77067

== ENCOUNTER → 2020-03-08 | Outpatient (CLI) | payer MEDICARE ==
--- NOTE | 2020-03-08 16:33 | RADIOLOGY REPORT (SQ) ---
EXAM DESCRIPTION: SHOULDER RIGHT 2 OR MORE VIEWS IMAGES COMPLETED DATE/TIME: 03/08/2020 3:59 pm REASON FOR STUDY: (M25.511)PAIN IN RIGHT SHOULDER M25.511 PAIN IN RIGHT SHOULDER COMPARISON: None. NUMBER OF VIEWS: Five views. TECHNIQUE: Internal rotation, external rotation, and Y view images acquired of the right shoulder. LIMITATIONS: None. FINDINGS: MINERALIZATION: Normal. BONES: No acute fracture. No worrisome bone lesions. JOINTS: No dislocation. Moderate acromioclavicular arthropathy is demonstrated. VISUALIZED LUNGS AND RIBS: No pneumothorax. No rib fracture. SOFT TISSUES: No radiopaque foreign body. OTHER: No other significant finding. IMPRESSION: No evidence of acute osseous injury. Moderate acromioclavicular arthropathy is noted. TECHNICAL DOCUMENTATION: JOB ID: [id number] 2010 [employer]- All Rights Reserved Reading location - IP/workstation name: [email or web address]
== END ==
LOC: RAD 15:16
PROVIDERS: ATTEND Internal Medicine Geriatric Medicine
DX: M12.811 Other specific arthropathies, not elsewhere classified, right shoulder (principal); M25.511 Pain in right shoulder